=== PATIENT | female | born 1990 | race Caucasian/White ===

== ENCOUNTER 2018-04-16 02:53 | Observation (INO) | payer BC ==
--- NOTE | 2018-04-16 02:58 | EDM.PDOC ---
ED HPI GENERAL MEDICAL PROBLEM - General Stated Complaint: KIDNEY PAIN Time Seen by Provider: 04/16/18 02:58 Source of Information: Reports: Patient History Limitations: Reports: No Limitations - History of Present Illness INITIAL COMMENTS - FREE TEXT/NARRATIVE: HISTORY AND PHYSICAL: History of present illness: 27-year-old female presenting to emergency department with chief complaint of dysuria and flank pain 2 days Patient states that last evening she began to have fever, chills, shaking, and flank pain. States that she went to the urgent care yesterday at [facility] and they checked her urine and told her that she had a urinary tract infection. They gave her a prescription for Macrobid. Tonight she continued to have fever, chills and shakes, in addition worsening flank pain left greater than right. Denies any history of kidney stones. States that she did have some microscopic blood in her urine when they analyze it. Denies any cinthya blood. Denies any diarrhea, significant abdominal pain, chest pain, palpitations, syncopal episodes, or focal neurologic deficits. Patient is generally healthy and takes no regular medications other than vitamins. Currently working with Dr. Zamorano at [facility] on fertility issues. Has not started taking Clomid. On exam patient has mild right upper quadrant pain as well as right CVA and severe left CVA pain. CBC showed leukocytosis of 19,000, lactate normal. Patient started on Cipro 400 mg IV CMP revealed hypokalemia with a potassium of 3.[address] abdomen and pelvis showed findings of acute pyelitis and pyelonephritis on the left without definable renal abscess. There are no urinary stones. There is additional inadvertent finding of a moderate large 5.2 cm cystic lesion in the right ovary which was considered larger than typically seen in a physiologic cyst but secondary to patient age most likely physiologic. They did recommend ultrasound to ensure resolution. There was a small amount of free fluid in the right pelvis related to this cyst. Review of systems: As per history of present illness and below otherwise all systems reviewed and negative. Past medical history: As per history of present illness and as reviewed below otherwise noncontributory. Surgical history: As per history of present illness and as reviewed below otherwise noncontributory. Social history: No reported history of drug or alcohol abuse. Family history: As per history of present illness and as reviewed below otherwise noncontributory. Physical exam: HEENT: Atraumatic, normocephalic, pupils reactive, negative for conjunctival pallor or scleral icterus, mucous membranes moist, throat clear, neck supple, nontender, trachea midline. Lungs: Clear to auscultation, breath sounds equal bilaterally, chest nontender. Heart: S1S2, regular, negative for clicks, rubs, or JVD. Abdomen: Soft, nondistended, mild right upper quadrant tenderness. Negative for masses or hepatosplenomegaly. Bilateral CVA tenderness. Pelvis: Stable nontender. Genitourinary: Deferred. Rectal: Deferred. Extremities: Atraumatic, negative for cords or calf pain. Neurovascular unremarkable. Neuro: Awake, alert, oriented. Cranial nerves II through XII unremarkable. Cerebellum unremarkable. Motor and sensory unremarkable throughout. Exam nonfocal. Diagnostics: CBC, CMP, UA/UC, blood culture 2, lactate, CT abdomen and pelvis Therapeutics: 1 L normal saline 1, 8 mg Zofran IV 1, 1 mg Dilaudid IV 1, Impression: Rigors Bilateral flank pain Acute pyelonephritis Sepsis Plan: Secondary to patient's pain as well as her septic picture secondary to her acute pyelonephritis I did call hospitalist, Dr. Sales, who agreed for admission. He also recommended Rocephin in addition to already given Cipro. 1 g Rocephin given in the emergency room. Definitive disposition and diagnosis as appropriate pending reevaluation and review of above. flank Pain Score (Numeric/FACES): 9 - Related Data Allergies Allergy/AdvReac Type Severity Reaction Status Date / Time No Known Allergies Allergy Verified 03/24/18 11:34 Home Meds: Home Meds Nitrofurantoin Monohyd/M-Cryst [Macrobid 100 mg Capsule] 1 tab PO BID 04/16/18 [ History] ED ROS GENERAL - Review of Systems Review Of Systems: ROS reveals no pertinent complaints other than HPI. ED EXAM, GENERAL - Physical Exam Exam: See Below Course - Vital Signs Last Recorded V/S: Last Vital Signs Temp 99.2 F 04/16/18 06:39 Pulse 98 04/16/18 06:39 Resp 18 04/16/18 06:39 BP 113/73 04/16/18 06:39 Pulse Ox 99 04/16/18 06:39 - Orders/Labs/Meds Orders: Active Orders 24 hr Category Date Time Status Admission Status [Patient Status] [ADT] Stat ADT 04/16/18 06:42 Ordered Abdomen Pelvis w Cont [CT] Stat Exams 04/16/18 03:11 Ordered CULTURE BLOOD [BC] Stat Lab 04/16/18 03:22 Received CULTURE BLOOD [BC] Stat Lab 04/16/18 03:31 Received CULTURE URINE [RM] Stat Lab 04/16/18 03:10 Ordered Ciprofloxacin in D5W [Cipro in D5W 400 MG/200 ML] 400 Med 04/16/18 04:15 Active mg Premix Bag 1 bag IV Q12H Sodium Chloride 0.9% [Saline Flush] Med 04/16/18 03:11 Active 10 ml FLUSH ASDIRECTED PRN Sodium Chloride 0.9% [Saline Flush] Med 04/16/18 03:11 Active 2.5 ml FLUSH ASDIRECTED PRN Sodium Chloride 0.9% [Saline Flush] Med 04/16/18 03:11 Active 2.5 ml FLUSH ASDIRECTED PRN cefTRIAXone [Rocephin in Dextrose,Iso-Osm 1 GM/50 ML] 1 Med 04/16/18 06:39 Active gm Premix Bag 1 bag IV ONETIME Blood Culture x2 Reflex Set [OM.PC] Stat Oth 04/16/18 03:13 Ordered Saline Lock Insert [OM.PC] Stat Oth 04/16/18 03:11 Ordered Medication Orders Ciprofloxacin/Dextrose 400 mg/ (Premix) 200 mls @ 200 mls/hr IV Q12H JOSIAH Last Admin: 04/16/18 06:31 Dose: 200 mls/hr Ceftriaxone Sodium/Dextrose 1 (gm/ Premix) 50 mls @ 100 mls/hr IV ONETIME ONE Stop: 04/16/18 07:08 Sodium Chloride (Saline Flush) 2.5 ml FLUSH ASDIRECTED PRN PRN Reason: Keep Vein Open Sodium Chloride (Saline Flush) 10 ml FLUSH ASDIRECTED PRN PRN Reason: Keep Vein Open Sodium Chloride (Saline Flush) 2.5 ml FLUSH ASDIRECTED PRN PRN Reason: Keep Vein Open Labs: Laboratory Tests 04/16/18 04/16/18 04/16/18 Range/Units 03:10 03:10 03:10 WBC 19.01 H (4.0-11.0) K/uL RBC 4.71 (4.30-5.90) M/uL Hgb 14.4 (12.0-16.0) g/dL Hct 41.4 (36.0-46.0) % MCV 87.9 (80.0-98.0) fL MCH 30.6 (27.0-32.0) pg MCHC 34.8 (31.0-37.0) g/dL RDW Std Deviation 39.0 (28.0-62.0) fl RDW Coeff of Brennon 12 (11.0-15.0) % Plt Count 218 (150-400) K/uL MPV 10.90 (7.40-12.00) fL Neut % (Auto) 87.0 H (48.0-80.0) % Lymph % (Auto) 3.2 L (16.0-40.0) % [place] % (Auto) 9.5 (0.0-15.0) % Eos % (Auto) 0.1 (0.0-7.0) % Baso % (Auto) 0.2 (0.0-1.5) % Neut # (Auto) 16.5 H (1.4-5.7) K/uL Lymph # (Auto) 0.6 (0.6-2.4) K/uL [place] # (Auto) 1.8 H (0.0-0.8) K/uL Eos # (Auto) 0.0 (0.0-0.7) K/uL Baso # (Auto) 0.0 (0.0-0.1) K/uL Nucleated RBC % 0.0 /100WBC Nucleated RBCs # 0 K/uL Lactate (0.20-2.00) mmol/L Sodium (136-145) mmol/L Potassium (3.5-5.1) mmol/L Chloride (98-107) mmol/L Carbon Dioxide (21.0-32.0) mmol/L BUN (7.0-18.0) mg/dL Creatinine (0.6-1.0) mg/dL Est Cr Clr Drug Dosing mL/min Estimated GFR (MDRD) ml/min Glucose (74-106) mg/dL Calcium (8.5-10.1) mg/dL Total Bilirubin (0.2-1.0) mg/dL AST (15-37) IU/L ALT (14-63) IU/L Alkaline Phosphatase (46-116) U/L Total Protein (6.4-8.2) g/dL Albumin (3.4-5.0) g/dL Globulin (2.0-3.5) g/dL Albumin/Globulin Ratio (1.3-2.8) Urine Color YELLOW Urine Appearance CLEAR Urine pH 5.0 (5.0-8.0) Ur Specific [place] 1.020 (1.001-1.035) Urine Protein NEGATIVE (NEGATIVE) mg/dL Urine Glucose (UA) NEGATIVE (NEGATIVE) mg/dL Urine Ketones TRACE H (NEGATIVE) mg/dL Urine Occult Blood SMALL H (NEGATIVE) Urine Nitrite NEGATIVE (NEGATIVE) Urine Bilirubin NEGATIVE (NEGATIVE) Urine Urobilinogen 0.2 (<2.0) EU/dL Ur Leukocyte Esterase NEGATIVE (NEGATIVE) Urine RBC 0-3 (0-2/HPF) Urine WBC 1-4 (0-5/HPF) Ur Epithelial Cells MODERATE (NONE-FEW) Urine Bacteria RARE (NEGATIVE) Urine HCG, Qual NEGATIVE (NEGATIVE) 04/16/18 04/16/18 Range/Units 03:10 03:31 WBC (4.0-11.0) K/uL RBC (4.30-5.90) M/uL Hgb (12.0-16.0) g/dL Hct (36.0-46.0) % MCV (80.0-98.0) fL MCH (27.0-32.0) pg MCHC (31.0-37.0) g/dL RDW Std Deviation (28.0-62.0) fl RDW Coeff of Brennon (11.0-15.0) % Plt Count (150-400) K/uL MPV (7.40-12.00) fL Neut % (Auto) (48.0-80.0) % Lymph % (Auto) (16.0-40.0) % [place] % (Auto) (0.0-15.0) % Eos % (Auto) (0.0-7.0) % Baso % (Auto) (0.0-1.5) % Neut # (Auto) (1.4-5.7) K/uL Lymph # (Auto) (0.6-2.4) K/uL [place] # (Auto) (0.0-0.8) K/uL Eos # (Auto) (0.0-0.7) K/uL Baso # (Auto) (0.0-0.1) K/uL Nucleated RBC % /100WBC Nucleated RBCs # K/uL Lactate 1.9 (0.20-2.00) mmol/L Sodium 136 (136-145) mmol/L Potassium 3.3 L (3.5-5.1) mmol/L Chloride 102 (98-107) mmol/L Carbon Dioxide 23.6 (21.0-32.0) mmol/L BUN 9 (7.0-18.0) mg/dL Creatinine 0.8 (0.6-1.0) mg/dL Est Cr Clr Drug Dosing 109.41 mL/min Estimated GFR (MDRD) > 60.0 ml/min Glucose 156 H (74-106) mg/dL Calcium 9.1 (8.5-10.1) mg/dL Total Bilirubin 0.5 (0.2-1.0) mg/dL AST 12 L (15-37) IU/L ALT 17 (14-63) IU/L Alkaline Phosphatase 72 (46-116) U/L Total Protein 7.1 (6.4-8.2) g/dL Albumin 3.8 (3.4-5.0) g/dL Globulin 3.3 (2.0-3.5) g/dL Albumin/Globulin Ratio 1.2 L (1.3-2.8) Urine Color Urine Appearance Urine pH (5.0-8.0) Ur Specific [place] (1.001-1.035) Urine Protein (NEGATIVE) mg/dL Urine Glucose (UA) (NEGATIVE) mg/dL Urine Ketones (NEGATIVE) mg/dL Urine Occult Blood (NEGATIVE) Urine Nitrite (NEGATIVE) Urine Bilirubin (NEGATIVE) Urine Urobilinogen (<2.0) EU/dL Ur Leukocyte Esterase (NEGATIVE) Urine RBC (0-2/HPF) Urine WBC (0-5/HPF) Ur Epithelial Cells (NONE-FEW) Urine Bacteria (NEGATIVE) Urine HCG, Qual (NEGATIVE) Meds: Medications Generic Name Dose Route Start Last Admin Trade Name Freq PRN Reason Stop Dose Admin Ciprofloxacin/Dextrose 400 mg/ 200 mls @ 200 mls/hr 04/16/18 04:15 04/16/18 06:31 Premix IV 200 mls/hr Q12H JOSIAH Administration Ceftriaxone Sodium/Dextrose 1 50 mls @ 100 mls/hr 04/16/18 06:39 gm/ Premix IV 04/16/18 07:08 ONETIME ONE Sodium Chloride 2.5 ml 04/16/18 03:11 Saline Flush FLUSH ASDIRECTED PRN Keep Vein Open Sodium Chloride 10 ml 04/16/18 03:11 Saline Flush FLUSH ASDIRECTED PRN Keep Vein Open Sodium Chloride 2.5 ml 04/16/18 03:11 Saline Flush FLUSH ASDIRECTED PRN Keep Vein Open Discontinued Medications Generic Name Dose Route Start Last Admin Trade Name Freq PRN Reason Stop Dose Admin Hydromorphone HCl 1 mg 04/16/18 03:11 04/16/18 03:25 Dilaudid IVPUSH 04/16/18 03:12 1 mg ONETIME ONE Administration Hydromorphone HCl Confirm 04/16/18 03:12 04/16/18 06:34 Dilaudid Administered 04/16/18 03:13 Not Given Dose 1 mg .ROUTE .STK-MED ONE Hydromorphone HCl Confirm 04/16/18 05:07 04/16/18 06:35 Dilaudid Administered 04/16/18 05:08 Not Given Dose 1 mg .ROUTE .STK-MED ONE Hydromorphone HCl 1 mg 04/16/18 06:32 04/16/18 06:34 Dilaudid IVPUSH 04/16/18 06:33 1 mg ONETIME ONE Administration Sodium Chloride 1,000 mls @ 999 mls/hr 04/16/18 03:11 04/16/18 03:22 Normal Saline IV 04/16/18 04:11 999 mls/hr BOLUS ONE Administration Ciprofloxacin/Dextrose Confirm 04/16/18 04:24 04/16/18 06:33 Cipro In D5w 400 Mg/200 Ml Administered 04/16/18 04:25 Not Given Dose 200 mls @ as directed .ROUTE .STK-MED ONE Iopamidol 100 ml 04/16/18 05:49 Isovue Multipack-370 (76%) IVPUSH 04/16/18 05:50 ONETIME STA Ondansetron HCl 8 mg 04/16/18 03:11 04/16/18 03:23 Zofran IVPUSH 04/16/18 03:12 8 mg ONETIME ONE Administration Ondansetron HCl Confirm 04/16/18 03:13 04/16/18 06:35 Zofran Administered 04/16/18 03:14 Not Given Dose 8 mg .ROUTE .STK-MED ONE Potassium Chloride 40 meq 04/16/18 06:37 Klor-Con M20 PO 04/16/18 06:38 ONETIME ONE Departure - Departure Time of Disposition: 06:46 Disposition: Admitted As Inpatient 65 Condition: Fair Clinical Impression: Acute pyelonephritis, Left flank pain Sepsis Qualifiers: Sepsis type: sepsis due to unspecified organism Qualified Code(s): A41.9 - Sepsis, unspecified organism - Discharge Information Referrals: PCP,None [Primary Care Provider] - - My Orders Last 24 Hours: My Active Orders 04/16/18 03:10 CULTURE URINE [RM] Stat 04/16/18 03:11 Abdomen Pelvis w Cont [CT] Stat Sodium Chloride 0.9% [Saline Flush] 10 ml FLUSH ASDIRECTED PRN Sodium Chloride 0.9% [Saline Flush] 2.5 ml FLUSH ASDIRECTED PRN Sodium Chloride 0.9% [Saline Flush] 2.5 ml FLUSH ASDIRECTED PRN Saline Lock Insert [OM.PC] Stat 04/16/18 03:13 Blood Culture x2 Reflex Set [OM.PC] Stat 04/16/18 03:22 CULTURE BLOOD [BC] Stat 04/16/18 03:31 CULTURE BLOOD [BC] Stat 04/16/18 04:15 Ciprofloxacin in D5W [Cipro in D5W 400 MG/200 ML] 400 mg Premix Bag 1 bag IV Q12H 04/16/18 06:39 cefTRIAXone [Rocephin in Dextrose,Iso-Osm 1 GM/50 ML] 1 gm Premix Bag 1 bag IV ONETIME 04/16/18 06:42 Admission Status [Patient Status] [ADT] Stat - Assessment/Plan Last 24 Hours: My Active Orders 04/16/18 03:10 CULTURE URINE [RM] Stat 04/16/18 03:11 Abdomen Pelvis w Cont [CT] Stat Sodium Chloride 0.9% [Saline Flush] 10 ml FLUSH ASDIRECTED PRN Sodium Chloride 0.9% [Saline Flush] 2.5 ml FLUSH ASDIRECTED PRN Sodium Chloride 0.9% [Saline Flush] 2.5 ml FLUSH ASDIRECTED PRN Saline Lock Insert [OM.PC] Stat 04/16/18 03:13 Blood Culture x2 Reflex Set [OM.PC] Stat 04/16/18 03:22 CULTURE BLOOD [BC] Stat 04/16/18 03:31 CULTURE BLOOD [BC] Stat 04/16/18 04:15 Ciprofloxacin in D5W [Cipro in D5W 400 MG/200 ML] 400 mg Premix Bag 1 bag IV Q12H 04/16/18 06:39 cefTRIAXone [Rocephin in Dextrose,Iso-Osm 1 GM/50 ML] 1 gm Premix Bag 1 bag IV ONETIME 04/16/18 06:42 Admission Status [Patient Status] [ADT] Stat
[2018-04-16] MEDS ORDERED: Sodium Chloride 0.9% 2.5 ML Syringe FLUSH PRN ×2 (03:11)
[2018-04-16] MEDS ORDERED: Ondansetron 4 MG/2 ML SDV IVPUSH ONE (03:11)
[2018-04-16] MEDS ORDERED: Sodium Chloride 0.9% 1,000 ML IV ONE (03:11)
[2018-04-16] MEDS ORDERED: Sodium Chloride 0.9% 10 ML Syringe FLUSH PRN (03:11)
[2018-04-16] MEDS ORDERED: HYDROmorphone 2 MG/ML SDV IVPUSH ONE (03:11)
[2018-04-16] MEDS ORDERED: HYDROmorphone 1 MG/ML Syringe ONE ×2 (03:12→05:07)
[2018-04-16] MEDS ORDERED: Ondansetron 4 MG/2 ML SDV ONE (03:13)
[2018-04-16 04:05] LABS: CHLORIDE,CL 102 mmol/L (98-107); SODIUM,NA 136 mmol/L (136-145)
[2018-04-16] MEDS ORDERED: Ciprofloxacin in D5W 400 MG in Premix Bag 1 BAG IV SCH ×2 (04:15)
[2018-04-16] MEDS ORDERED: Ciprofloxacin in D5W 200 ML ONE (04:24)
[2018-04-16] MEDS ORDERED: Iopamidol 755 MG/ML 500 ML Multipack Bottle IVPUSH STA (05:49)
[2018-04-16] MEDS ORDERED: HYDROmorphone 2 MG/ML Syringe IVPUSH ONE (06:32)
[2018-04-16] MEDS ORDERED: Potassium Chloride 20 MEQ Tab.ER PO ONE (06:37)
[2018-04-16] MEDS ORDERED: cefTRIAXone 1 GM in Premix Bag 1 BAG IV ONE (06:39)
[2018-04-16] MEDS ORDERED: HYDROmorphone 1 MG/ML Syringe IVPUSH ONE (06:55)
[2018-04-16] MEDS ORDERED: Ondansetron 4 MG/2 ML SDV IVPUSH PRN (09:17)
[2018-04-16] MEDS: Acetaminophen 325 MG Tab PO PRN ×3 (09:34→23:11)
[2018-04-16] MEDS: Sodium Chloride 0.9% 1,000 ML IV SCH ×2 (09:41→19:03)
--- NOTE | 2018-04-16 10:01 | PCM.HP ---
H&P History of Present Illness - General Date of Service: 04/16/18 Admit Problem/Dx: Admission Diagnosis/Problem Admission Diagnosis/Problem Pyelonephritis Source of Information: Patient History Limitations: Reports: No Limitations - History of Present Illness Initial Comments - Free Text/Narative: 27F with no past medical history that presented to the ER with a chief complaint of flank pain, subjective fever x2 days. She says that she went to [facility] on 04/15/2018 AM when she was diagnosed with a UTI and started on macrobid. She says she took two pills of the macrobid, went to work but the pain that she was in was unbearable so she presented to the ER. In the ER, patient had a CT abdo/pelvis revealing acute pyelonephritis with no stone, + likely physiological ovarian cyst. She has a lack of an appetite but doesn't feel nauseous and hasn't vomited. ER Course: CBC - WBC 19k CMP - K+ 3.3 UA - not a clear UTI but had taken Macrobid prior to this UA. Will obtain UA/ Culture results from [facility] if available. flank Pain Score (Numeric/FACES): 5 - Related Data Allergies/Adverse Reactions: Allergies Allergy/AdvReac Type Severity Reaction Status Date / Time No Known Allergies Allergy Verified 03/24/18 11:34 Home Medications: Home Meds Nitrofurantoin Monohyd/M-Cryst [Macrobid 100 mg Capsule] 1 tab PO BID 04/16/18 [ History] Past Medical History - Past Health History Medical/Surgical History: Denies Medical/Surgical History - Infectious Disease History Infectious Disease History: Reports: Chicken Pox Social & Family History - Family History Family Medical History: Noncontributory - Tobacco Use Smoking Status *Q: Light Tobacco Smoker Years of Tobacco use: 10 Packs/Tins Daily: 0 Second Hand Smoke Exposure: No - Caffeine Use Caffeine Use: Reports: Tea Other Caffeine Use: 1x a week. - Recreational Drug Use Recreational Drug Use: No H&P Review of Systems - Review of Systems: Review Of Systems: See Below General: Reports: Fever, Chills, Diaphoresis HEENT: Reports: No Symptoms Pulmonary: Reports: No Symptoms Cardiovascular: Reports: No Symptoms Gastrointestinal: Reports: Decreased Appetite. Denies: Vomiting Genitourinary: Reports: Pain, Other. Denies: Burning, Urgency, Incontinence, Hematuria, Discharge Musculoskeletal: Reports: Back Pain Skin: Reports: No Symptoms Psychiatric: Reports: No Symptoms Neurological: Reports: No Symptoms Hematologic/Lymphatic: Reports: No Symptoms Immunologic: Reports: No Symptoms Exam - Exam Exam: See Below - Vital Signs Vital Signs: Last Vital Signs Temp 40.0 C H 04/16/18 09:15 Pulse 131 H 04/16/18 08:21 Resp 18 04/16/18 08:21 BP 153/94 H 04/16/18 08:21 Pulse Ox 97 04/16/18 08:21 Weight: 75.977 kg - Exam General: Alert, Oriented, Cooperative HEENT: Conjunctiva Clear, EACs Clear, EOMI, Hearing Intact, Mucosa Moist & [place] , Nares Patent, Normal Nasal Septum, Posterior Pharynx Clear, TMs Clear Neck: Supple, Trachea Midline, 2 Lungs: Clear to Auscultation, Normal Respiratory Effort Cardiovascular: Regular Rate, Regular Rhythm GI/Abdominal Exam: Normal Bowel Sounds, Soft, Non-Tender, No Organomegaly, No Distention, No Abnormal Bruit, No Mass, Pelvis Stable Back Exam: CVA Tenderness (L). No: CVA Tenderness (R) Extremities: Normal Inspection, Normal Range of Motion, Non-Tender, No Pedal Edema, Normal Capillary Refill Peripheral Pulses: 2+: Posterior Tibial (L), Posterior Tibial (R), Dorsalis Pedis (L), Dorsalis Pedis (R) Skin: Warm, Dry, Intact Neurological: Cranial Nerves Intact Neuro Extensive - Mental Status: Alert, Oriented x3, Normal Mood/Affect - Patient Data Lab Results Last 24 hrs: Laboratory Results - last 24 hr 04/16/18 04/16/18 04/16/18 Range/Units 03:10 03:10 03:10 WBC 19.01 H (4.0-11.0) K/uL RBC 4.71 (4.30-5.90) M/uL Hgb 14.4 (12.0-16.0) g/dL Hct 41.4 (36.0-46.0) % MCV 87.9 (80.0-98.0) fL MCH 30.6 (27.0-32.0) pg MCHC 34.8 (31.0-37.0) g/dL RDW Std Deviation 39.0 (28.0-62.0) fl RDW Coeff of Brennon 12 (11.0-15.0) % Plt Count 218 (150-400) K/uL MPV 10.90 (7.40-12.00) fL Neut % (Auto) 87.0 H (48.0-80.0) % Lymph % (Auto) 3.2 L (16.0-40.0) % [place] % (Auto) 9.5 (0.0-15.0) % Eos % (Auto) 0.1 (0.0-7.0) % Baso % (Auto) 0.2 (0.0-1.5) % Neut # (Auto) 16.5 H (1.4-5.7) K/uL Lymph # (Auto) 0.6 (0.6-2.4) K/uL [place] # (Auto) 1.8 H (0.0-0.8) K/uL Eos # (Auto) 0.0 (0.0-0.7) K/uL Baso # (Auto) 0.0 (0.0-0.1) K/uL Nucleated RBC % 0.0 /100WBC Nucleated RBCs # 0 K/uL Lactate (0.20-2.00) mmol/L Sodium (136-145) mmol/L Potassium (3.5-5.1) mmol/L Chloride (98-107) mmol/L Carbon Dioxide (21.0-32.0) mmol/L BUN (7.0-18.0) mg/dL Creatinine (0.6-1.0) mg/dL Est Cr Clr Drug Dosing mL/min Estimated GFR (MDRD) ml/min Glucose (74-106) mg/dL Calcium (8.5-10.1) mg/dL Total Bilirubin (0.2-1.0) mg/dL AST (15-37) IU/L ALT (14-63) IU/L Alkaline Phosphatase (46-116) U/L Total Protein (6.4-8.2) g/dL Albumin (3.4-5.0) g/dL Globulin (2.0-3.5) g/dL Albumin/Globulin Ratio (1.3-2.8) Urine Color YELLOW Urine Appearance CLEAR Urine pH 5.0 (5.0-8.0) Ur Specific [place] 1.020 (1.001-1.035) Urine Protein NEGATIVE (NEGATIVE) mg/dL Urine Glucose (UA) NEGATIVE (NEGATIVE) mg/dL Urine Ketones TRACE H (NEGATIVE) mg/dL Urine Occult Blood SMALL H (NEGATIVE) Urine Nitrite NEGATIVE (NEGATIVE) Urine Bilirubin NEGATIVE (NEGATIVE) Urine Urobilinogen 0.2 (<2.0) EU/dL Ur Leukocyte Esterase NEGATIVE (NEGATIVE) Urine RBC 0-3 (0-2/HPF) Urine WBC 1-4 (0-5/HPF) Ur Epithelial Cells MODERATE (NONE-FEW) Urine Bacteria RARE (NEGATIVE) Urine HCG, Qual NEGATIVE (NEGATIVE) 04/16/18 04/16/18 Range/Units 03:10 03:31 WBC (4.0-11.0) K/uL RBC (4.30-5.90) M/uL Hgb (12.0-16.0) g/dL Hct (36.0-46.0) % MCV (80.0-98.0) fL MCH (27.0-32.0) pg MCHC (31.0-37.0) g/dL RDW Std Deviation (28.0-62.0) fl RDW Coeff of Brennon (11.0-15.0) % Plt Count (150-400) K/uL MPV (7.40-12.00) fL Neut % (Auto) (48.0-80.0) % Lymph % (Auto) (16.0-40.0) % [place] % (Auto) (0.0-15.0) % Eos % (Auto) (0.0-7.0) % Baso % (Auto) (0.0-1.5) % Neut # (Auto) (1.4-5.7) K/uL Lymph # (Auto) (0.6-2.4) K/uL [place] # (Auto) (0.0-0.8) K/uL Eos # (Auto) (0.0-0.7) K/uL Baso # (Auto) (0.0-0.1) K/uL Nucleated RBC % /100WBC Nucleated RBCs # K/uL Lactate 1.9 (0.20-2.00) mmol/L Sodium 136 (136-145) mmol/L Potassium 3.3 L (3.5-5.1) mmol/L Chloride 102 (98-107) mmol/L Carbon Dioxide 23.6 (21.0-32.0) mmol/L BUN 9 (7.0-18.0) mg/dL Creatinine 0.8 (0.6-1.0) mg/dL Est Cr Clr Drug Dosing 109.41 mL/min Estimated GFR (MDRD) > 60.0 ml/min Glucose 156 H (74-106) mg/dL Calcium 9.1 (8.5-10.1) mg/dL Total Bilirubin 0.5 (0.2-1.0) mg/dL AST 12 L (15-37) IU/L ALT 17 (14-63) IU/L Alkaline Phosphatase 72 (46-116) U/L Total Protein 7.1 (6.4-8.2) g/dL Albumin 3.8 (3.4-5.0) g/dL Globulin 3.3 (2.0-3.5) g/dL Albumin/Globulin Ratio 1.2 L (1.3-2.8) Urine Color Urine Appearance Urine pH (5.0-8.0) Ur Specific [place] (1.001-1.035) Urine Protein (NEGATIVE) mg/dL Urine Glucose (UA) (NEGATIVE) mg/dL Urine Ketones (NEGATIVE) mg/dL Urine Occult Blood (NEGATIVE) Urine Nitrite (NEGATIVE) Urine Bilirubin (NEGATIVE) Urine Urobilinogen (<2.0) EU/dL Ur Leukocyte Esterase (NEGATIVE) Urine RBC (0-2/HPF) Urine WBC (0-5/HPF) Ur Epithelial Cells (NONE-FEW) Urine Bacteria (NEGATIVE) Urine HCG, Qual (NEGATIVE) Result Diagrams: 04/16/18 03:10 04/16/18 03:10 Problem List Initiated/Reviewed/Updated: Yes Orders Last 24hrs: Active Orders 24 hr Category Date Time Status Admission Status [Patient Status] [ADT] Stat ADT 04/16/18 06:42 Active Oxygen Therapy [RC] PRN Care 04/16/18 09:15 Active Up ad Cindi [RC] ASDIRECTED Care 04/16/18 09:15 Active VTE/DVT Education [RC] PER UNIT ROUTINE Care 04/16/18 09:15 Active Vital Signs [RC] Q4H Care 04/16/18 09:15 Active Regular Diet [DIET] Diet 04/16/18 Lunch Active Abdomen Pelvis w Cont [CT] Stat Exams 04/16/18 03:11 Taken BASIC METABOLIC PANEL,BMP [CHEM] AM Lab 04/17/18 05:11 Ordered CBC W/O DIFF,HEMOGRAM [HEME] AM Lab 04/17/18 05:11 Ordered CULTURE BLOOD [BC] Stat Lab 04/16/18 03:22 Received CULTURE BLOOD [BC] Stat Lab 04/16/18 03:31 Received CULTURE URINE [RM] Stat Lab 04/16/18 03:10 Received Acetaminophen [Tylenol] Med 04/16/18 09:15 Active 650 mg PO Q4H PRN Ciprofloxacin in D5W [Cipro in D5W 400 MG/200 ML] 400 Med 04/16/18 04:15 Active mg Premix Bag 1 bag IV Q12H Morphine Med 04/16/18 09:36 Ordered 2 mg IVPUSH Q2H PRN Ondansetron [Zofran] Med 04/16/18 09:17 Active 4 mg IVPUSH Q4H PRN Sodium Chloride 0.9% [Normal Saline] 1,000 ml Med 04/16/18 09:15 Active IV ASDIRECTED Sodium Chloride 0.9% [Saline Flush] Med 04/16/18 03:11 Active 10 ml FLUSH ASDIRECTED PRN Sodium Chloride 0.9% [Saline Flush] Med 04/16/18 03:11 Active 2.5 ml FLUSH ASDIRECTED PRN Sodium Chloride 0.9% [Saline Flush] Med 04/16/18 03:11 Active 2.5 ml FLUSH ASDIRECTED PRN cefTRIAXone [Rocephin in Dextrose,Iso-Osm 1 GM/50 ML] 1 Med 04/16/18 09:45 Ordered gm Premix Bag 1 bag IV Q24H Blood Culture x2 Reflex Set [OM.PC] Stat Oth 04/16/18 03:13 Ordered Saline Lock Insert [OM.PC] Stat Oth 04/16/18 03:11 Ordered Sequential Compression Device [OM.PC] Per Unit Routine Oth 04/16/18 09:15 Ordered Resuscitation Status Routine Resus Stat 04/16/18 09:15 Ordered Medication Orders Acetaminophen (Tylenol) 650 mg PO Q4H PRN PRN Reason: Pain (Mild 1-3)/fever Last Admin: 04/16/18 09:34 Dose: 650 mg Ciprofloxacin/Dextrose 400 mg/ (Premix) 200 mls @ 200 mls/hr IV Q12H [facility] Last Admin: 04/16/18 06:31 Dose: 200 mls/hr Sodium Chloride (Normal Saline) 1,000 mls @ 150 mls/hr IV ASDIRECTED JOSIAH Last Admin: 04/16/18 09:41 Dose: 150 mls/hr Ceftriaxone Sodium/Dextrose 1 (gm/ Premix) 50 mls @ 100 mls/hr IV Q24H [facility] Morphine Sulfate (Morphine) 2 mg IVPUSH Q2H PRN PRN Reason: Pain Ondansetron HCl (Zofran) 4 mg IVPUSH Q4H PRN PRN Reason: Nausea Sodium Chloride (Saline Flush) 2.5 ml FLUSH ASDIRECTED PRN PRN Reason: Keep Vein Open Sodium Chloride (Saline Flush) 10 ml FLUSH ASDIRECTED PRN PRN Reason: Keep Vein Open Sodium Chloride (Saline Flush) 2.5 ml FLUSH ASDIRECTED PRN PRN Reason: Keep Vein Open Assessment/Plan Comment:: Assessment: #1. Acute Pyelonephritis #2. Leukocytosis secondary to #1 #3. Pain secondary to #1 #4. Nausea secondary to #1 #5. Physiologic Ovarian cyst #6. Fever Plan: #1. Admit to the floor for observation. Vital signs per floor routine. SCD for DVT prophylaxis. Up ad cindi. Regular diet. #2. IV Rocephin 1g q24h #3. Morphine 2mg q2h PRN, pain #4. Zofran 4mg q4h PRN, nausea #5. F/u on Urine culture. Obtain records from [facility] and see if the culture they might have obtained is back yet. Also want to see the UA from there. #6. CT also showed an incidental ovarian cyst thats likely physiologic. I'd like to obtain a f/u as an outpatient that we can schedule upon discharge. #7. Anticipate DC 1-2 days pending clinical improvement.
[2018-04-16] MEDS: cefTRIAXone 1 GM in Sodium Chloride 0.9% 50 ML IV SCH (10:45)
[2018-04-16] MEDS: Morphine 2 MG/ML Syringe IVPUSH PRN ×4 (10:46→20:44)
--- NOTE | 2018-04-16 13:15 | CT ---
EXAM DATE: 04/16/18 PATIENT'S AGE: 27 Patient: BILL GOLDSTEIN Facility: [place], [place] Site . Site : 1990 Study: CT Abdomen/Pelvis [id number]/4/2018 5:57:10 AM Ordering Physician: Henrique Herrera Final Report: INDICATION: Flank pain. Previous urinary tract infections. TECHNIQUE: CT of the abdomen and pelvis performed after 100 mL Isovue-370 injected intravenously. FINDINGS: Moderate phlegmonous inflammatory stranding and fluid surrounding the left kidney with wall thickening and abnormal enhancement of the left ureter especially proximally extending into the left renal pelvis. Patchy areas of ill- defined and wedge-shaped decreased density and enhancement in the left kidney. Findings all typical of acute ascending urinary tract infection with acute pyelitis and pyelonephritis. Right kidney is normal. Slight prominence of the right renal pelvis. No definable left renal abscess at this time. Moderate- sized right ovarian cystic lesion oval in shape and measures 5.2 cm. Small amount of fluid surrounding the right ovary. Appendix is normal. Small cysts and follicles in the left ovary. Remainder negative. IMPRESSION: 1. Typical CT findings of acute pyelitis and pyelonephritis on the left without definable renal abscess at this time. 2. No obvious urinary stones. 3. Moderate sized moderately large size 5.2 cm cystic lesion right ovary is larger than typically seen for a physiologic cyst but in a patient of this age is still likely physiologic. Follow-up ultrasound could ensure this resolves. Small amount of free fluid in the right pelvis related to this stone. Other findings as above. Please note that all CT scans at this facility use dose modulation, iterative reconstruction, and/or weight-based dosing when appropriate to reduce radiation dose to as low as reasonably achievable. Dictated by Dominguez Craven MD @ Apr 16 2018 6:23AM (Electronic Signature) Report Signed by Proxy. ANSLEY
[2018-04-16] MEDS: HYDROmorphone 1 MG/ML Syringe IVPUSH PRN ×2 (19:02→23:08)
[2018-04-17] MEDS: Sodium Chloride 0.9% 1,000 ML IV SCH ×2 (01:25→08:00)
[2018-04-17] MEDS: Morphine 2 MG/ML Syringe IVPUSH PRN (03:34)
[2018-04-17] MEDS: Acetaminophen 325 MG Tab PO PRN ×2 (03:34→07:54)
[2018-04-17 05:44] LABS: CHLORIDE,CL 109 mmol/L (98-107); SODIUM,NA 139 mmol/L (136-145)
[2018-04-17] MEDS: HYDROmorphone 1 MG/ML Syringe IVPUSH PRN (07:55)
[2018-04-17] MEDS: cefTRIAXone 1 GM in Sodium Chloride 0.9% 50 ML IV SCH (09:07)
--- NOTE | 2018-04-17 15:33 | PCM.DCSUM1 ---
<Nagi Mtz - Last Filed: 04/17/18 15:29> Discharge Summary - Hospital Course Free Text/Narrative:: admission date: 04/16/2018 discharge date: 04/17/2018 admission dx: #1. Acute pyelonephritis #2. Leukocytosis #3. Fever #4. CVA tenderness and pain secondary to #1 #5. Nausea discharge dx: #1. Acute pyelonephritis - clinically improved #2. Leukocytosis - improving #3. Fever - afebrile overnight #4. CVA tenderness and pain secondary to #1 - improved #5. Nausea - resolved Hospital course: 27F with no significant past hx that presented to the ER with a cc of bilateral flank pain found on CT to have acute pyelonephritis w/ no obstructing stone was admitted secondary to pain control and nausea. She was placed on IV rocephin, PRN pain control which she responded well to. The next morning on assessment, patient was afebrile, pain stable, able to tolerate PO. She wanted to go home. I put her on augmentin for the next 13 day. Culture wasn' t obtained at urgent care center that she went to originally so was unable to obtain now given that she was on abx. She was placed on macrobid by urgent care. She is to f/u with me in clinic. She is to report worsening or persistent worrisome symptoms. A release to work was given so she can go back to work on Friday04/20/18. She understood and agreed to the plan. - Discharge Data Discharge Date: 04/17/18 Discharge Disposition: Home, Self-Care 01 Condition: Stable - Patient Instructions Diet: Usual Diet as Tolerated Activity: As Tolerated Driving: May Drive Today Showering/Bathing: May Shower Notify Provider of: Fever, Increased Pain, Swelling and Redness, Nausea and/or Vomiting - Discharge Plan Prescriptions/Med Rec: Amoxicillin/Clavulanate K [Augmentin 875-125 MG] 1 tab PO Q12H 13 Days #26 tablet traMADol [Ultram] 50 mg PO Q8H PRN #15 tablet PRN Reason: Pain Home Medications: Home Meds Nitrofurantoin Monohyd/M-Cryst [Macrobid 100 mg Capsule] 1 tab PO BID 04/16/18 [ History] Amoxicillin/Clavulanate K [Augmentin 875-125 MG] 1 tab PO Q12H 13 Days #26 tablet 04/17/18 [Rx] traMADol [Ultram] 50 mg PO Q8H PRN #15 tablet 04/17/18 [Rx] Patient Handouts: Fever, Adult, Pyelonephritis, Adult, [id number] Referrals: Nagi Mtz MD [Resident] - 04/30/18 2:30 pm - Patient Data Vitals - Most Recent: Last Vital Signs Temp 36.9 C 04/17/18 11:24 Pulse 80 04/17/18 11:24 Resp 16 04/17/18 11:24 BP 108/70 04/17/18 11:24 Pulse Ox 99 04/17/18 11:24 Weight - Most Recent: 75.977 kg I&O - Last 24 hours: Intake & Output 04/17/18 04/17/18 04/17/18 06:59 14:59 22:59 Intake Total 2373 Output Total 650 Balance 1723 Lab Results - Last 24 hrs: Laboratory Results - last 24 hr 04/17/18 04/17/18 Range/Units 04:55 04:55 WBC 13.43 H (4.0-11.0) K/uL RBC 3.85 L (4.30-5.90) M/uL Hgb 11.6 L (12.0-16.0) g/dL Hct 35.0 L (36.0-46.0) % MCV 90.9 (80.0-98.0) fL MCH 30.1 (27.0-32.0) pg MCHC 33.1 (31.0-37.0) g/dL RDW Std Deviation 42.1 (28.0-62.0) fl RDW Coeff of Brennon 13 (11.0-15.0) % Plt Count 141 L (150-400) K/uL MPV 10.90 (7.40-12.00) fL Nucleated RBC % 0.0 /100WBC Nucleated RBCs # 0 K/uL Sodium 139 (136-145) mmol/L Potassium 3.5 (3.5-5.1) mmol/L Chloride 109 H (98-107) mmol/L Carbon Dioxide 23.1 (21.0-32.0) mmol/L BUN 6 L (7.0-18.0) mg/dL Creatinine 0.7 (0.6-1.0) mg/dL Est Cr Clr Drug Dosing 125.04 mL/min Estimated GFR (MDRD) > 60.0 ml/min Glucose 109 H (74-106) mg/dL Calcium 7.9 L (8.5-10.1) mg/dL RAINER Results - Last 24 hrs: Microbiology 04/16/18 03:31 Aerobic Blood Culture - Preliminary Blood - Venous - Lab Draw NO GROWTH AFTER 1 DAY Anaerobic Blood Culture - Preliminary NO GROWTH AFTER 1 DAY 04/16/18 03:22 Aerobic Blood Culture - Preliminary Blood - Venous NO GROWTH AFTER 1 DAY Anaerobic Blood Culture - Preliminary NO GROWTH AFTER 1 DAY Med Orders - Current: Current Medications Discontinued Medications Acetaminophen (Tylenol) 650 mg PO Q4H PRN PRN Reason: Pain (Mild 1-3)/fever Last Admin: 04/17/18 07:54 Dose: 650 mg Hydromorphone HCl (Dilaudid) 1 mg IVPUSH ONETIME ONE Stop: 04/16/18 03:12 Last Admin: 04/16/18 03:25 Dose: 1 mg Hydromorphone HCl (Dilaudid) Confirm Administered Dose 1 mg .ROUTE .STK-MED ONE Stop: 04/16/18 03:13 Last Admin: 04/16/18 06:34 Dose: Not Given Hydromorphone HCl (Dilaudid) Confirm Administered Dose 1 mg .ROUTE .STK-MED ONE Stop: 04/16/18 05:08 Last Admin: 04/16/18 06:35 Dose: Not Given Hydromorphone HCl (Dilaudid) 1 mg IVPUSH ONETIME ONE Stop: 04/16/18 06:33 Last Admin: 04/16/18 06:34 Dose: 1 mg Hydromorphone HCl (Dilaudid) 1 mg IVPUSH ONETIME ONE Stop: 04/16/18 06:56 Last Admin: 04/16/18 07:02 Dose: 1 mg Hydromorphone HCl (Dilaudid) 0.5 mg IVPUSH Q4H PRN PRN Reason: Pain Last Admin: 04/17/18 07:55 Dose: 0.5 mg Sodium Chloride (Normal Saline) 1,000 mls @ 999 mls/hr IV BOLUS ONE Stop: 04/16/18 04:11 Last Admin: 04/16/18 03:22 Dose: 999 mls/hr Ciprofloxacin/Dextrose (Cipro In D5w 400 Mg/200 Ml) Confirm Administered Dose 200 mls @ as directed .ROUTE .STK-MED ONE Stop: 04/16/18 04:25 Last Admin: 04/16/18 06:33 Dose: Not Given Ciprofloxacin/Dextrose 400 mg/ (Premix) 200 mls @ 200 mls/hr IV Q12H [facility] Last Admin: 04/16/18 06:31 Dose: 200 mls/hr Ceftriaxone Sodium/Dextrose 1 (gm/ Premix) 50 mls @ 100 mls/hr IV ONETIME ONE Stop: 04/16/18 07:08 Last Admin: 04/16/18 06:58 Dose: 100 mls/hr Sodium Chloride (Normal Saline) 1,000 mls @ 150 mls/hr IV ASDIRECTED [facility] Last Admin: 04/17/18 08:00 Dose: 150 mls/hr Ceftriaxone Sodium 1 gm/ (Sodium Chloride) 50 mls @ 100 mls/hr IV Q24H [facility] Last Admin: 04/17/18 09:07 Dose: 100 mls/hr Iopamidol (Isovue Multipack-370 (76%)) 100 ml IVPUSH ONETIME STA Stop: 04/16/18 05:50 Last Admin: 04/16/18 10:41 Dose: Not Given Morphine Sulfate (Morphine) 2 mg IVPUSH Q2H PRN PRN Reason: Pain Last Admin: 04/17/18 03:34 Dose: 2 mg Ondansetron HCl (Zofran) 8 mg IVPUSH ONETIME ONE Stop: 04/16/18 03:12 Last Admin: 04/16/18 03:23 Dose: 8 mg Ondansetron HCl (Zofran) Confirm Administered Dose 8 mg .ROUTE .STK-MED ONE Stop: 04/16/18 03:14 Last Admin: 04/16/18 06:35 Dose: Not Given Ondansetron HCl (Zofran) 4 mg IVPUSH Q4H PRN PRN Reason: Nausea Potassium Chloride (Klor-Con M20) 40 meq PO ONETIME ONE Stop: 04/16/18 06:38 Last Admin: 04/16/18 06:57 Dose: 40 meq Sodium Chloride (Saline Flush) 2.5 ml FLUSH ASDIRECTED PRN PRN Reason: Keep Vein Open Sodium Chloride (Saline Flush) 10 ml FLUSH ASDIRECTED PRN PRN Reason: Keep Vein Open Sodium Chloride (Saline Flush) 2.5 ml FLUSH ASDIRECTED PRN PRN Reason: Keep Vein Open <Leno Sales - Last Filed: 04/21/18 14:38> Discharge Summary - Discharge Summary/Plan Comment DC Time >30 min.: No - Patient Data Vitals - Most Recent: Last Vital Signs Temp 36.9 C 04/17/18 11:24 Pulse 80 04/17/18 11:24 Resp 16 04/17/18 11:24 BP 108/70 04/17/18 11:24 Pulse Ox 99 04/17/18 11:24 RAINER Results - Last 24 hrs: Microbiology 04/16/18 03:31 Aerobic Blood Culture - Final Blood - Venous - Lab Draw NO GROWTH AFTER 5 DAYS Anaerobic Blood Culture - Final NO GROWTH AFTER 5 DAYS 04/16/18 03:22 Aerobic Blood Culture - Final Blood - Venous NO GROWTH AFTER 5 DAYS Anaerobic Blood Culture - Final NO GROWTH AFTER 5 DAYS Med Orders - Current: Current Medications Discontinued Medications Acetaminophen (Tylenol) 650 mg PO Q4H PRN PRN Reason: Pain (Mild 1-3)/fever Last Admin: 04/17/18 07:54 Dose: 650 mg Hydromorphone HCl (Dilaudid) 1 mg IVPUSH ONETIME ONE Stop: 04/16/18 03:12 Last Admin: 04/16/18 03:25 Dose: 1 mg Hydromorphone HCl (Dilaudid) Confirm Administered Dose 1 mg .ROUTE .STK-MED ONE Stop: 04/16/18 03:13 Last Admin: 04/16/18 06:34 Dose: Not Given Hydromorphone HCl (Dilaudid) Confirm Administered Dose 1 mg .ROUTE .STK-MED ONE Stop: 04/16/18 05:08 Last Admin: 04/16/18 06:35 Dose: Not Given Hydromorphone HCl (Dilaudid) 1 mg IVPUSH ONETIME ONE Stop: 04/16/18 06:33 Last Admin: 04/16/18 06:34 Dose: 1 mg Hydromorphone HCl (Dilaudid) 1 mg IVPUSH ONETIME ONE Stop: 04/16/18 06:56 Last Admin: 04/16/18 07:02 Dose: 1 mg Hydromorphone HCl (Dilaudid) 0.5 mg IVPUSH Q4H PRN PRN Reason: Pain Last Admin: 04/17/18 07:55 Dose: 0.5 mg Sodium Chloride (Normal Saline) 1,000 mls @ 999 mls/hr IV BOLUS ONE Stop: 04/16/18 04:11 Last Admin: 04/16/18 03:22 Dose: 999 mls/hr Ciprofloxacin/Dextrose (Cipro In D5w 400 Mg/200 Ml) Confirm Administered Dose 200 mls @ as directed .ROUTE .STK-MED ONE Stop: 04/16/18 04:25 Last Admin: 04/16/18 06:33 Dose: Not Given Ciprofloxacin/Dextrose 400 mg/ (Premix) 200 mls @ 200 mls/hr IV Q12H [facility] Last Admin: 04/16/18 06:31 Dose: 200 mls/hr Ceftriaxone Sodium/Dextrose 1 (gm/ Premix) 50 mls @ 100 mls/hr IV ONETIME ONE Stop: 04/16/18 07:08 Last Admin: 04/16/18 06:58 Dose: 100 mls/hr Sodium Chloride (Normal Saline) 1,000 mls @ 150 mls/hr IV ASDIRECTED [facility] Last Admin: 04/17/18 08:00 Dose: 150 mls/hr Ceftriaxone Sodium 1 gm/ (Sodium Chloride) 50 mls @ 100 mls/hr IV Q24H [facility] Last Admin: 04/17/18 09:07 Dose: 100 mls/hr Iopamidol (Isovue Multipack-370 (76%)) 100 ml IVPUSH ONETIME STA Stop: 04/16/18 05:50 Last Admin: 04/16/18 10:41 Dose: Not Given Morphine Sulfate (Morphine) 2 mg IVPUSH Q2H PRN PRN Reason: Pain Last Admin: 04/17/18 03:34 Dose: 2 mg Ondansetron HCl (Zofran) 8 mg IVPUSH ONETIME ONE Stop: 04/16/18 03:12 Last Admin: 04/16/18 03:23 Dose: 8 mg Ondansetron HCl (Zofran) Confirm Administered Dose 8 mg .ROUTE .STK-MED ONE Stop: 04/16/18 03:14 Last Admin: 04/16/18 06:35 Dose: Not Given Ondansetron HCl (Zofran) 4 mg IVPUSH Q4H PRN PRN Reason: Nausea Potassium Chloride (Klor-Con M20) 40 meq PO ONETIME ONE Stop: 04/16/18 06:38 Last Admin: 04/16/18 06:57 Dose: 40 meq Sodium Chloride (Saline Flush) 2.5 ml FLUSH ASDIRECTED PRN PRN Reason: Keep Vein Open Sodium Chloride (Saline Flush) 10 ml FLUSH ASDIRECTED PRN PRN Reason: Keep Vein Open Sodium Chloride (Saline Flush) 2.5 ml FLUSH ASDIRECTED PRN PRN Reason: Keep Vein Open - Free Text/Narrative Note: I have examined the patient. I have discussed findings and treatment plan with the resident. I agree with the assessment and plan in the following resident's note.
== END 2018-04-17 11:30 | disposition home or self-care (01) ==
LOC: MW.ED 02:53 → MW.MS 08:20
PROVIDERS: ADMIT Internal Medicine; ATTEND Internal Medicine
DX: N10 Acute pyelonephritis (principal); D72.829 Elevated white blood cell count, unspecified; A41.9 Sepsis, unspecified organism; N83.201 Unspecified ovarian cyst, right side; F17.200 Nicotine dependence, unspecified, uncomplicated; Z79.2 Long term (current) use of antibiotics
CPT/HCPCS: 36415; 74177; 80048; 80053; 81001; 81025; 83036; 83605; 85025; 85027; 87040; 87086; 96361; 96365; 96367; 96375; 96376; 99285; A9270; J0696; J0744; J1170; J2270; J2405; J7040; J7050; 96366; 99284; G0378

== ENCOUNTER 2019-06-15 12:00 | Inpatient (IN) | payer BC ==
[2019-06-15] MEDS ORDERED: Tranexamic Acid 1,000 MG in Sodium Chloride 0.9% 100 ML IV PRN ×2 (12:20→20:11)
[2019-06-15] MEDS ORDERED: Terbutaline 1 MG/ML SDV SUBCUT PRN (12:20)
[2019-06-15] MEDS ORDERED: Methylergonovine 0.2 MG/1 ML Amp IM PRN (12:20)
[2019-06-15] MEDS ORDERED: Sodium Chloride 0.9% 10 ML Syringe FLUSH PRN (12:20)
[2019-06-15] MEDS ORDERED: Ondansetron 4 MG/2 ML SDV IVPUSH PRN (12:20)
[2019-06-15] MEDS ORDERED: Carboprost Tromethamine 250 MCG/1 ML Amp IM PRN (12:20)
[2019-06-15] MEDS ORDERED: Butorphanol 1 MG/ML SDV IVPUSH PRN (12:20)
[2019-06-15] MEDS ORDERED: Sodium Chloride 0.9% 10 ML SDV IV PRN (12:20)
[2019-06-15] MEDS ORDERED: Lidocaine 1% 50 ML MDV INJECT PRN (12:20)
[2019-06-15] MEDS ORDERED: Sodium Chloride 0.9% 2.5 ML Syringe FLUSH PRN (12:20)
[2019-06-15] MEDS ORDERED: Nalbuphine 10 MG/1 ML Vial IVPUSH PRN (12:20)
[2019-06-15] MEDS ORDERED: Misoprostol 200 MCG Tab PO PRN (12:20)
[2019-06-15] MEDS ORDERED: Water For Irrigation,Sterile 1,000 ML Container IRR PRN (12:20)
[2019-06-15] MEDS ORDERED: Oxytocin/0.9 % Sodium Chloride 30 UNIT/500 ML BAG IV SCH ×2 (12:30)
[2019-06-15] MEDS: Lactated Ringers 1,000 ML IV SCH ×3 (12:38→18:27)
--- NOTE | 2019-06-15 16:14 | PCM.PREANE ---
Preanesthetic Assessment - Procedure Proposed Procedure: Labor Epidural. - Anesthesia/Transfusion/Family Hx Anesthesia History: Prior Anesthesia Without Reaction Family History of Anesthesia Reaction: No Transfusion History: No Prior Transfusion(s) Intubation History: Unknown Additional History: Healthy term . Active labor, on Pitocin, dilated 4 cm. Received Stadol @ 15:27. - Review of Systems General: No Symptoms Pulmonary: No Symptoms Cardiovascular: No Symptoms Gastrointestinal: No Symptoms Neurological: No Symptoms Other: Reports: None - Physical Assessment NPO Status Date: 06/15/19 NPO Status Time: 15:00 (Clear Liquids) Vital Signs: 117/73-72-16 98% SaO2. Height: 1.78 m Weight: 89.358 kg ASA Class: 1 Mental Status: Alert & Oriented x3 Airway Class: Mallampati = 1 Dentition: Reports: Normal Dentition Thyro-Mental Finger Breadths: 3 Mouth Opening Finger Breadths: 3 ROM/Head Extension: Full Lungs: Clear to Auscultation Cardiovascular: Regular Rate - Lab Values: Laboratory Last Values WBC 15.06 K/uL (4.0-11.0) H 06/15/19 12:45 RBC 4.25 M/uL (4.30-5.90) L 06/15/19 12:45 Hgb 13.4 g/dL (12.0-16.0) 06/15/19 12:45 Hct 38.1 % (36.0-46.0) 06/15/19 12:45 MCV 89.6 fL (80.0-98.0) 06/15/19 12:45 MCH 31.5 pg (27.0-32.0) 06/15/19 12:45 MCHC 35.2 g/dL (31.0-37.0) 06/15/19 12:45 RDW Std Deviation 38.6 fl (28.0-62.0) 06/15/19 12:45 RDW Coeff of Brennon 12 % (11.0-15.0) 06/15/19 12:45 Plt Count 173 K/uL (150-400) 06/15/19 12:45 MPV 11.90 fL (7.40-12.00) 06/15/19 12:45 Blood Type B NEGATIVE 06/15/19 12:45 Antibody Screen NEGATIVE 06/15/19 12:45 - Allergies Allergies/Adverse Reactions: Allergies Allergy/AdvReac Type Severity Reaction Status Date / Time No Known Allergies Allergy Verified 06/15/19 12:20 - Blood Blood Available: No - Anesthesia Plan Pre-Op Medication Ordered: None - Acknowledgements Anesthesia Type Planned: Epidural Pt an Appropriate Candidate for the Planned Anesthesia: Yes Alternatives and Risks of Anesthesia Discussed w Pt/Guardian: Yes Pt/Guardian Understands and Agrees with Anesthesia Plan: Yes Additional Comments: Discussed procedure. Aware of risks and benefits. ? answered. Accepts. Wishes to proceed upon OK from ASSISTED LIVING ASSISTANT. Acceptable candidate. PreAnesthesia Questionnaire - Past Health History Medical/Surgical History: Denies Medical/Surgical History Genitourinary History: Reports: Pyelonephritis, Other (See Below) Other Genitourinary History: 2018 ASSISTED LIVING ASSISTANT History: Reports: - Infectious Disease History Infectious Disease History: Reports: Chicken Pox, Influenza - Past Surgical History HEENT Surgical History: Reports: Other (See Below) Other HEENT Surgeries/Procedures: wisdom teeth removal - SUBSTANCE USE Smoking Status *Q: Former Smoker Tobacco Use Within Last Twelve Months: Cigarettes Second Hand Smoke Exposure: No - HOME MEDS Home Medications: Home Meds Docusate Sodium [Colace] 100 mg PO TID 06/15/19 [History] Iron,Carbonyl/Vit C/Vit B12/Fa [Iron 100 Plus Tablet] 1 tab PO DAILY 06/15/19 [ History] Magnesium Oxide 400 mg PO DAILY 06/15/19 [History] Pnv No.95/Ferrous Fum/Folic AC [ Vitamin Tablet] 1 tab PO DAILY [History] - CURRENT (IN HOUSE) MEDS Current Meds: Current Medications Butorphanol Tartrate (Stadol) 1 mg IVPUSH Q1H PRN PRN Reason: Pain Last Admin: 06/15/19 15:27 Dose: 1 mg Carboprost Tromethamine (Hemabate Ds) 250 mcg IM ASDIRECTED PRN PRN Reason: Post Hemorrhage Lactated Ringer's (Ringers, Lactated) 1,000 mls @ 150 mls/hr IV ASDIRECTED JOSIAH Last Admin: 06/15/19 12:38 Dose: 500 mls/hr Oxytocin/Sodium Chloride (Oxytocin 30 Unit/500 Ml-Ns) 30 unit in 500 mls @ 500 mls/hr IV TITRATE JOSIAH Oxytocin/Sodium Chloride (Oxytocin 30 Unit/500 Ml-Ns) 30 unit in 500 mls @ 2 mls/hr IV TITRATE JOSIAH; Protocol Last Titration: 06/15/19 13:14 Dose: 4 munits/min, 4 mls/hr Tranexamic Acid 1,000 mg/ (Sodium Chloride) 110 mls @ 660 mls/hr IV ONETIME PRN PRN Reason: Bleeding Lidocaine HCl (Xylocaine 1%) 50 ml INJECT ONETIME PRN PRN Reason: Laceration repair Methylergonovine Maleate (Methergine) 0.2 mg IM ASDIRECTED PRN PRN Reason: Post Hemorrhage Misoprostol (Cytotec) 200 mcg PO ONETIME PRN PRN Reason: Post Hemorrhage Nalbuphine HCl (Nubain) 10 mg IVPUSH Q1H PRN PRN Reason: Pain (severe 7-10) Ondansetron HCl (Zofran) 4 mg IVPUSH Q6H PRN PRN Reason: Nausea/Vomiting Sodium Chloride (Saline Flush) 10 ml FLUSH ASDIRECTED PRN PRN Reason: Keep Vein Open Sodium Chloride (Saline Flush) 2.5 ml FLUSH ASDIRECTED PRN PRN Reason: Keep Vein Open Sodium Chloride (Normal Saline) 10 ml IV ASDIRECTED PRN PRN Reason: IV Use Sterile Water (Sterile Water For Irrigation) 1,000 ml IRR ASDIRECTED PRN PRN Reason: delivery Terbutaline Sulfate (Brethine) 0.25 mg SUBCUT ASDIRECTED PRN PRN Reason: Tacysystole
[2019-06-15] MEDS ORDERED: Ropivacaine HCl/PF 0 ML ONE (16:22)
[2019-06-15] MEDS ORDERED: fentaNYL 100 MCG/2 ML SDV ONE (16:22)
[2019-06-15] MEDS ORDERED: Ropivacaine 0.2% 2 MG/ML 20 ML SDV ONE (16:22)
[2019-06-15] MEDS ORDERED: Ropivacaine HCl/PF 100 ML ONE (16:46)
--- NOTE | 2019-06-15 17:15 | PCM.PRNOTE ---
- Free Text/Narrative Note: Anes NOte Patietn requests epidural for L&. Sitting position. Level L3-L4 midline approach. Sterile technique Chloraprep scrub to lumbar area. Sterile fenestrated drape applied. Epidural space easily achieved single attempt with ease using CAMERON technique. CAMERON at 4 cm. Cath threaded 5 cm with ease. Secured at skin at 9 cm. Sterile clear adhesive dressing used to secure catheter. 1655 test 3 cc 1.5% lidoe with epi negative. 1658 load 10 cc 0.2% ropivicaine with 1 mcg cc fentanyl in slow divided doses. 1704 pump started with 90 cc same solution at 8 cc hr with 6 cc q 20 min prn bolus. [place] well. Time with patient [id number] Mack Rooney CRNA
--- NOTE | 2019-06-15 20:09 | PCM.DEL ---
L & D Note - General Info Date of Service: 06/15/19 Mother's Due Date: 06/12/19 - Delivery Note Labor: Augmented by ARM, Induced by Oxytocin Delivery Outcome: Livebirth Delivery Method: Spontaneous Vaginal Delivery-Single Presentation: Left Occiput Anterior (LUCY) Nuchal Cord: None Prep: Other Anesthesia Type: Epidural Amniotic Fluid Description: Clear Episiotomy Type: None Laceration: Vaginal Suture type: Vicryl Suture size: 3-0 Placenta: Intact, Spontaneous Cord: 3 Vessels Estimated Blood Loss: 300 Resuscitation Needed: No [place]: Suctioned Score 1 min: 8 Score 5 min: 9 Delivery Comments (Free Text/Narrative):: Liveborn female weight 7#14oz - General Info Date of Service: 06/15/19 - Patient Data Weight - Most Recent: 89.358 kg I&O - Last 24 Hours: Intake & Output 06/15/19 06/15/19 06/15/19 06:59 14:59 22:59 Intake Total 1999 Balance 1999 Lab Results Last 24 Hours: Laboratory Results - last 24 hr 06/15/19 06/15/19 Range/Units 12:45 12:45 WBC 15.06 H (4.0-11.0) K/uL RBC 4.25 L (4.30-5.90) M/uL Hgb 13.4 (12.0-16.0) g/dL Hct 38.1 (36.0-46.0) % MCV 89.6 (80.0-98.0) fL MCH 31.5 (27.0-32.0) pg MCHC 35.2 (31.0-37.0) g/dL RDW Std Deviation 38.6 (28.0-62.0) fl RDW Coeff of Brennon 12 (11.0-15.0) % Plt Count 173 (150-400) K/uL MPV 11.90 (7.40-12.00) fL Blood Type B NEGATIVE Antibody Screen NEGATIVE Med Orders - Current: Current Medications Butorphanol Tartrate (Stadol) 1 mg IVPUSH Q1H PRN PRN Reason: Pain Last Admin: 06/15/19 15:27 Dose: 1 mg Carboprost Tromethamine (Hemabate Ds) 250 mcg IM ASDIRECTED PRN PRN Reason: Post Hemorrhage Lactated Ringer's (Ringers, Lactated) 1,000 mls @ 150 mls/hr IV ASDIRECTED JOSIAH Last Admin: 06/15/19 18:27 Dose: 150 mls/hr Oxytocin/Sodium Chloride (Oxytocin 30 Unit/500 Ml-Ns) 30 unit in 500 mls @ 500 mls/hr IV TITRATE JOSIAH Oxytocin/Sodium Chloride (Oxytocin 30 Unit/500 Ml-Ns) 30 unit in 500 mls @ 2 mls/hr IV TITRATE JOSIAH; Protocol Last Titration: 06/15/19 19:00 Dose: 8 munits/min, 8 mls/hr Tranexamic Acid 1,000 mg/ (Sodium Chloride) 110 mls @ 660 mls/hr IV ONETIME PRN PRN Reason: Bleeding Lidocaine HCl (Xylocaine 1%) 50 ml INJECT ONETIME PRN PRN Reason: Laceration repair Methylergonovine Maleate (Methergine) 0.2 mg IM ASDIRECTED PRN PRN Reason: Post Hemorrhage Misoprostol (Cytotec) 200 mcg PO ONETIME PRN PRN Reason: Post Hemorrhage Nalbuphine HCl (Nubain) 10 mg IVPUSH Q1H PRN PRN Reason: Pain (severe 7-10) Ondansetron HCl (Zofran) 4 mg IVPUSH Q6H PRN PRN Reason: Nausea/Vomiting Last Admin: 06/15/19 18:20 Dose: 4 mg Sodium Chloride (Saline Flush) 10 ml FLUSH ASDIRECTED PRN PRN Reason: Keep Vein Open Sodium Chloride (Saline Flush) 2.5 ml FLUSH ASDIRECTED PRN PRN Reason: Keep Vein Open Sodium Chloride (Normal Saline) 10 ml IV ASDIRECTED PRN PRN Reason: IV Use Sterile Water (Sterile Water For Irrigation) 1,000 ml IRR ASDIRECTED PRN PRN Reason: delivery Terbutaline Sulfate (Brethine) 0.25 mg SUBCUT ASDIRECTED PRN PRN Reason: Tacysystole Discontinued Medications Fentanyl (Sublimaze) Confirm Administered Dose 100 mcg .ROUTE .STK-MED ONE Stop: 06/15/19 16:23 Ropivacaine (Naropin 0.2%) Confirm Administered Dose 100 mls @ as directed .ROUTE .STK-MED ONE Stop: 06/15/19 16:23 Ropivacaine (Naropin 0.2%) Confirm Administered Dose 100 mls @ as directed .ROUTE .STK-MED ONE Stop: 06/15/19 16:47 Ropivacaine (Naropin 0.2%) Confirm Administered Dose 20 ml .ROUTE .STK-MED ONE Stop: 06/15/19 16:23 - Problem List & Annotations (1) Vaginal delivery SNOMED Code(s): 125097214 Code(s): O80 - ENCOUNTER FOR FULL-TERM UNCOMPLICATED DELIVERY Status: Acute Current Visit: Yes - Problem List Review Problem List Initiated/Reviewed/Updated: Yes - My Orders Last 24 Hours: My Active Orders 06/15/19 12:20 Butorphanol [Stadol] 1 mg IVPUSH Q1H PRN Carboprost Tromethamine [Hemabate DS] 250 mcg IM ASDIRECTED PRN Lidocaine 1% [Xylocaine 1%] 50 ml INJECT ONETIME PRN Methylergonovine [Methergine] 0.2 mg IM ASDIRECTED PRN Nalbuphine [Nubain] 10 mg IVPUSH Q1H PRN Ondansetron [Zofran] 4 mg IVPUSH Q6H PRN Sodium Chloride 0.9% [Normal Saline] 10 ml IV ASDIRECTED PRN Sodium Chloride 0.9% [Saline Flush] 10 ml FLUSH ASDIRECTED PRN Sodium Chloride 0.9% [Saline Flush] 2.5 ml FLUSH ASDIRECTED PRN Terbutaline [Brethine] 0.25 mg SUBCUT ASDIRECTED PRN Tranexamic Acid [Cyklokapron] 1,000 mg Sodium Chloride 0.9% [Normal Saline] 100 ml IV ONETIME Water For Irrigation,Sterile [Sterile Water for Irrigation] 1,000 ml IRR ASDIRECTED PRN miSOPROStoL [Cytotec] 200 mcg PO ONETIME PRN Resuscitation Status Routine 06/15/19 12:21 Patient Status [ADT] Routine Bedrest Bathroom Privileges [RC] ASDIRECTED Communication Order [RC] ASDIRECTED Heart Tones [RC] CONTINUOUS Non Stress Test [RC] PER UNIT ROUTINE May Shower [RC] ASDIRECTED Notify Provider [RC] PRN Oxygen Therapy [RC] ASDIRECTED Up ad Cindi [RC] ASDIRECTED Vaginal Exam [RC] PRN Vital Signs [RC] PER UNIT ROUTINE Scalp Electrode [WOMSER] Per Unit Routine Peripheral IV Insertion Adult [OM.PC] Routine 06/15/19 12:30 Lactated Ringers [Ringers, Lactated] 1,000 ml IV ASDIRECTED Oxytocin/0.9 % Sodium Chloride [Oxytocin 30 Unit/500 ML-NS] 30 unit in 500 ml IV TITRATE Oxytocin/0.9 % Sodium Chloride [Oxytocin 30 Unit/500 ML-NS] 30 unit in 500 ml IV TITRATE Medication Administration Instruction [OM.PC] Q3H 06/15/19 12:45 RAPID PLASMA REAGIN, QUANT [REF] Routine 06/15/19 Dinner Clear Liquid Diet [DIET]
[2019-06-15] MEDS ORDERED: Ibuprofen 400 MG Tab PO PRN (20:11)
[2019-06-15] MEDS ORDERED: Bisacodyl 10 MG Supp RECTAL PRN (20:11)
[2019-06-15] MEDS ORDERED: oxyCODONE 5 MG Tab PO PRN (20:11)
[2019-06-15] MEDS ORDERED: Benzocaine/Menthol 20%-0.5% Spray 78 GM Cannister TOP PRN (20:11)
[2019-06-15] MEDS ORDERED: Witch Hazel Medicated Pads 40/Jar TOP PRN (20:11)
[2019-06-15] MEDS ORDERED: Acetaminophen 500 MG Tab PO PRN ×2 (20:11)
[2019-06-15] MEDS ORDERED: Lanolin 100% Cream 7 GM Tube TOP PRN (20:11)
[2019-06-15] MEDS ORDERED: Docusate Sodium 100 MG Cap PO PRN (20:11)
[2019-06-15] MEDS: Ibuprofen 800 MG Tab PO PRN (23:36)
--- NOTE | 2019-06-16 02:15 | OR ---
SURGEON: Iraida Zamorano M.D. DATE OF PROCEDURE: 06/15/2019 PREOPERATIVE DIAGNOSIS: 40-3/7 week intrauterine , postdates induction of labor. POSTOPERATIVE DIAGNOSIS: 40-3/7 week intrauterine , postdates induction of labor. PROCEDURES: 1. Pitocin induction of labor. 2. Artificial rupture of membranes. 3. Term spontaneous vaginal delivery. 4. Repair of vaginal laceration. PRIMARY SURGEON: Iraida Zamorano M.D. ANESTHESIA: Epidural. ESTIMATED BLOOD LOSS: Less than 300 mL. FINDINGS: Liveborn female. scores 9 and 10, weighing 3530 g. Cord blood was collected. The placenta was delivered spontaneously, Osei intact with 3 vessels. Upon inspection of the pelvis and perineum, there were no periurethral, vaginal sidewall, cervical, or rectal lacerations. There was a vaginal laceration at this focus at 6 o'clock, which was repaired. COMPLICATIONS: None known. DISPOSITION: Mother and baby are in LDR in good condition. BRIEF HISTORY: This is a 28-year-old female. She it is G1, P0, presents at 40-3/7 weeks' gestation for induction of labor. She was 3 to 4 cm dilated when she presented. She received Pitocin up to 4 milliunits per minute and had significant pain. Therefore, she did receive an epidural. Shortly thereafter, she had artificial rupture of membranes with clear fluid noted. Pitocin was increased up to a maximum of 8 milliunits per minute. She had progressed to complete. DESCRIPTION OF PROCEDURE: With the patient in the dorsal lithotomy position, the patient pushed over 3 contractions to a 5+ station at which time the head was delivered spontaneously and atraumatically over the perineum with support. With Elaine maneuver and slight rotation, the anterior and posterior shoulders were delivered without difficulty with subsequent delivery of the infant's body. The was bulb suctioned by nose and mouth, and after the cord had ceased to pulsate, it was doubly clamped and cut. Pitocin was initiated after delivery of the to assist with delivery of the placenta. Cord blood was collected for cord ABGs as well as routine cord blood sampling. With the Pitocin, fundal massage, and gentle traction on the cord, the placenta did deliver after 20 minutes with subsequent increased bleeding, not hemorrhage. However, Methergine was given to assist with mild uterine atony, and Pitocin was continued an additional 30 milliunits. Upon inspection of the pelvis and perineum, there was a small vaginal laceration at 6 o'clock, which was repaired with a running lock suture of 3-0 Vicryl, and there were no periurethral, vaginal sidewall, cervical, rectal, or perineal lacerations. EBL was less than 300 mL. There were no known complications. Mother and baby are in LDR in good condition. MUNA KASPER /[id number]
--- NOTE | 2019-06-16 07:18 | PCM.POSTAN ---
POST ANESTHESIA ASSESSMENT - MENTAL STATUS Mental Status: Alert - VITAL SIGNS Vital Signs: Last Vital Signs Temp 36.4 C 06/16/19 04:34 Pulse 51 L 06/16/19 04:34 Resp 16 06/16/19 04:34 BP 127/68 06/16/19 04:34 Pulse Ox 96 06/16/19 04:34 - RESPIRATORY Respiratory Status: Respiratory Rate WNL - CARDIOVASCULAR CV Status: Pulse Rate WNL - GASTROINTESTINAL GI Status: No Symptoms - POST OP HYDRATION Hydration Status: Adequate & Stable
--- NOTE | 2019-06-16 07:20 | PCM48HPAN ---
Post Anesthesia Note - EVALUATION WITHIN 48HRS OF ANESTHETIC Vital Signs in Normal Range: Yes Patient Participated in Evaluation: Yes Respiratory Function Stable: Yes Airway Patent: Yes Cardiovascular Function Stable: Yes Hydration Status Stable: Yes Pain Control Satisfactory: Yes Nausea and Vomiting Control Satisfactory: Yes Mental Status Recovered: Yes Vital Signs: Last Vital Signs Temp 36.4 C 06/16/19 04:34 Pulse 51 L 06/16/19 04:34 Resp 16 06/16/19 04:34 BP 127/68 06/16/19 04:34 Pulse Ox 96 06/16/19 04:34
[2019-06-16] MEDS: Ibuprofen 800 MG Tab PO PRN ×2 (07:47→16:18)
--- NOTE | 2019-06-16 08:48 | PCM.PNPP ---
- General Info Date of Service: 06/16/19 Functional Status: Reports: Pain Controlled - Review of Systems General: Reports: No Symptoms HEENT: Reports: No Symptoms Pulmonary: Reports: No Symptoms Cardiovascular: Reports: No Symptoms Gastrointestinal: Reports: No Symptoms Genitourinary: Reports: No Symptoms Musculoskeletal: Reports: No Symptoms Skin: Reports: No Symptoms Neurological: Reports: No Symptoms Psychiatric: Reports: No Symptoms - General Info Date of Service: 06/16/19 - Patient Data Vital Signs - Most Recent: Last Vital Signs Temp 36.4 C 06/16/19 07:38 Pulse 57 L 06/16/19 07:38 Resp 15 06/16/19 07:38 BP 112/75 06/16/19 07:38 Pulse Ox 95 06/16/19 07:38 Weight - Most Recent: 89.358 kg I&O - Last 24 Hours: Intake & Output 06/15/19 06/16/19 06/16/19 22:59 06:59 14:59 Intake Total 1999 Balance 1999 Lab Results - Last 24 Hours: Laboratory Results - last 24 hr 06/15/19 06/15/19 06/15/19 Range/Units 12:45 12:45 19:33 WBC 15.06 H (4.0-11.0) K/uL RBC 4.25 L (4.30-5.90) M/uL Hgb 13.4 (12.0-16.0) g/dL Hct 38.1 (36.0-46.0) % MCV 89.6 (80.0-98.0) fL MCH 31.5 (27.0-32.0) pg MCHC 35.2 (31.0-37.0) g/dL RDW Std Deviation 38.6 (28.0-62.0) fl RDW Coeff of Brennon 12 (11.0-15.0) % Plt Count 173 (150-400) K/uL MPV 11.90 (7.40-12.00) fL Cord ABG pH 7.295 (7.18-7.38) Cord ABG Base Excess -5 (-10--2) Cord VBG pH 7.324 (7.25-7.45) Cord VBG Base Excess -4 (-10--2) Blood Type B NEGATIVE Antibody Screen NEGATIVE Screen (NEGATIVE) RhIG Candidate? Rhogam Indicated 06/15/19 06/16/19 Range/Units 21:05 05:21 WBC (4.0-11.0) K/uL RBC (4.30-5.90) M/uL Hgb 12.9 (12.0-16.0) g/dL Hct 37.8 (36.0-46.0) % MCV (80.0-98.0) fL MCH (27.0-32.0) pg MCHC (31.0-37.0) g/dL RDW Std Deviation (28.0-62.0) fl RDW Coeff of Brennon (11.0-15.0) % Plt Count (150-400) K/uL MPV (7.40-12.00) fL Cord ABG pH (7.18-7.38) Cord ABG Base Excess (-10--2) Cord VBG pH (7.25-7.45) Cord VBG Base Excess (-10--2) Blood Type Antibody Screen Screen NEGATIVE (NEGATIVE) RhIG Candidate? YES Rhogam Indicated YES, BABY RH POS H Med Orders - Current: Current Medications Acetaminophen (Tylenol Extra Strength) 500 mg PO Q4H PRN PRN Reason: Pain Acetaminophen (Tylenol Extra Strength) 1,000 mg PO Q4H PRN PRN Reason: Pain Last Admin: 06/15/19 23:37 Dose: 1,000 mg Benzocaine/Menthol (Dermoplast Pain Relief 20%-0.5% [place]) 78 gm TOP ASDIRECTED PRN PRN Reason: Perineal Comfort Measure Bisacodyl (Dulcolax) 10 mg RECTAL ONETIME PRN PRN Reason: Constipation Docusate Sodium (Colace) 100 mg PO BID PRN PRN Reason: Constipation Emollient Ointment (Lansinoh Hpa) 0 gm TOP ASDIRECTED PRN PRN Reason: Sore Nipples Last Admin: 06/15/19 23:37 Dose: 1 applic Tranexamic Acid 1,000 mg/ (Sodium Chloride) 110 mls @ 660 mls/hr IV ONETIME PRN PRN Reason: Bleeding Ibuprofen (Motrin) 400 mg PO Q4H PRN PRN Reason: Pain Ibuprofen (Motrin) 800 mg PO Q6H PRN PRN Reason: Pain Last Admin: 06/16/19 07:47 Dose: 800 mg Oxycodone HCl (Oxycodone) 5 mg PO Q2H PRN PRN Reason: Pain Witch Massiel (Tucks) 1 pad TOP ASDIRECTED PRN PRN Reason: comfort care Discontinued Medications Butorphanol Tartrate (Stadol) 1 mg IVPUSH Q1H PRN PRN Reason: Pain Last Admin: 06/15/19 15:27 Dose: 1 mg Carboprost Tromethamine (Hemabate Ds) 250 mcg IM ASDIRECTED PRN PRN Reason: Post Hemorrhage Fentanyl (Sublimaze) Confirm Administered Dose 100 mcg .ROUTE .STK-MED ONE Stop: 06/15/19 16:23 Lactated Ringer's (Ringers, Lactated) 1,000 mls @ 150 mls/hr IV ASDIRECTED JOSIAH Last Admin: 06/15/19 18:27 Dose: 150 mls/hr Oxytocin/Sodium Chloride (Oxytocin 30 Unit/500 Ml-Ns) 30 unit in 500 mls @ 500 mls/hr IV TITRATE JOSIAH Last Admin: 06/15/19 20:08 Dose: 500 mls/hr Oxytocin/Sodium Chloride (Oxytocin 30 Unit/500 Ml-Ns) 30 unit in 500 mls @ 2 mls/hr IV TITRATE JOSIAH; Protocol Last Titration: 06/15/19 19:34 Dose: 999 munits/min, 999 mls/hr Tranexamic Acid 1,000 mg/ (Sodium Chloride) 110 mls @ 660 mls/hr IV ONETIME PRN PRN Reason: Bleeding Ropivacaine (Naropin 0.2%) Confirm Administered Dose 0 mls @ as directed .ROUTE .STK-MED ONE Stop: 06/15/19 16:23 Ropivacaine (Naropin 0.2%) Confirm Administered Dose 100 mls @ as directed .ROUTE .STK-MED ONE Stop: 06/15/19 16:47 Lidocaine HCl (Xylocaine 1%) 50 ml INJECT ONETIME PRN PRN Reason: Laceration repair Methylergonovine Maleate (Methergine) 0.2 mg IM ASDIRECTED PRN PRN Reason: Post Hemorrhage Last Admin: 06/15/19 20:08 Dose: 0.2 mg Misoprostol (Cytotec) 200 mcg PO ONETIME PRN PRN Reason: Post Hemorrhage Nalbuphine HCl (Nubain) 10 mg IVPUSH Q1H PRN PRN Reason: Pain (severe 7-10) Ondansetron HCl (Zofran) 4 mg IVPUSH Q6H PRN PRN Reason: Nausea/Vomiting Last Admin: 06/15/19 18:20 Dose: 4 mg Ropivacaine (Naropin 0.2%) Confirm Administered Dose 20 ml .ROUTE .[facility]-MED ONE Stop: 06/15/19 16:23 Sodium Chloride (Saline Flush) 10 ml FLUSH ASDIRECTED PRN PRN Reason: Keep Vein Open Sodium Chloride (Saline Flush) 2.5 ml FLUSH ASDIRECTED PRN PRN Reason: Keep Vein Open Sodium Chloride (Normal Saline) 10 ml IV ASDIRECTED PRN PRN Reason: IV Use Sterile Water (Sterile Water For Irrigation) 1,000 ml IRR ASDIRECTED PRN PRN Reason: delivery Terbutaline Sulfate (Brethine) 0.25 mg SUBCUT ASDIRECTED PRN PRN Reason: Tacysystole - Interaction Support Person: - Recovery Exam Fundal Tone: Firm Fundal Level: 3 Fingerbreadths Below Umbilicus Fundal Placement: Midline Lochia Amount: Scant Lochia Color: Rubra/Red - Exam General: Alert, Oriented Lungs: Normal Respiratory Effort GI/Abdominal Exam: Non-Tender, No Organomegaly, No Abnormal Bruit Extremities: Normal Inspection, Normal Range of Motion, Non-Tender Skin: Warm, Dry, Intact Neurological: No New Focal Deficit Psy/Mental Status: Alert, Normal Affect, Normal Mood - Problem List & Annotations (1) Vaginal delivery SNOMED Code(s): 038901303 Code(s): O80 - ENCOUNTER FOR FULL-TERM UNCOMPLICATED DELIVERY Status: Acute Current Visit: Yes - Problem List Review Problem List Initiated/Reviewed/Updated: Yes - My Orders Last 24 Hours: My Active Orders 06/15/19 12:21 Bedrest Bathroom Privileges [RC] ASDIRECTED Communication Order [RC] ASDIRECTED Heart Tones [RC] CONTINUOUS Non Stress Test [RC] PER UNIT ROUTINE May Shower [RC] ASDIRECTED Notify Provider [RC] PRN Oxygen Therapy [RC] ASDIRECTED Up ad Cindi [RC] ASDIRECTED Vaginal Exam [RC] PRN Vital Signs [RC] PER UNIT ROUTINE 06/15/19 12:45 RAPID PLASMA REAGIN, QUANT [REF] Routine 06/15/19 20:11 Patient Status [ADT] Routine May Shower [RC] ASDIRECTED Up ad Cindi [RC] ASDIRECTED Vital Signs [RC] PER UNIT ROUTINE Acetaminophen [Tylenol Extra Strength] 1,000 mg PO Q4H PRN Acetaminophen [Tylenol Extra Strength] 500 mg PO Q4H PRN Benzocaine/Menthol [Dermoplast Pain Relief 20%-0.5% [place]] 78 gm TOP ASDIRECTED PRN Bisacodyl [Dulcolax] 10 mg RECTAL ONETIME PRN Docusate Sodium [Colace] 100 mg PO BID PRN Ibuprofen [Motrin] 400 mg PO Q4H PRN Ibuprofen [Motrin] 800 mg PO Q6H PRN Lanolin [Lansinoh HPA] See Dose Instructions TOP ASDIRECTED PRN Tranexamic Acid [Cyklokapron] 1,000 mg Sodium Chloride 0.9% [Normal Saline] 100 ml IV ONETIME Witch Massiel [Tucks] 1 pad TOP ASDIRECTED PRN oxyCODONE 5 mg PO Q2H PRN Assess Lochia [WOMSER] Per Unit Routine Assess Uterine Involution [WOMSER] Per Unit Routine Peripheral IV Discontinue [OM.PC] Routine Resuscitation Status Routine 06/15/19 20:12 Perineal Care [OM.PC] Per Unit Routine 06/15/19 21:05 SCREEN [BBK] Routine RH IMMUNE GLOBULIN [BBK] Routine RHIG WORKUP, [BBK] Routine 06/16/19 Breakfast Regular Diet [DIET] - Assessment Assessment:: PPD#1 after , stable minimal lochia, well, would like to go home this evening. - Plan Plan:: Discharge instructions reviewed will dismiss when greater then 24 hours .
== END 2019-06-16 22:30 | disposition home or self-care (01) | DRG 560 ==
LOC: MW.OB 12:00 → OBSVTOIN 06-16 09:39
PROVIDERS: ADMIT Obstetrics & Gynecology; ATTEND Obstetrics & Gynecology
PROC: 10E0XZZ Delivery of Products of Conception, External Approach (ICD-10-PCS; principal; 2019-06-16)
PROC: 10907ZC Drainage of Amniotic Fluid, Therapeutic from Products of Conception, Via Natural or Artificial Opening (ICD-10-PCS; 2019-06-16)
PROC: 3E033VJ Introduction of Other Hormone into Peripheral Vein, Percutaneous Approach (ICD-10-PCS; 2019-06-16)
PROC: 0HQ9XZZ Repair Perineum Skin, External Approach (ICD-10-PCS; 2019-06-16)
PROC: 3E0R3BZ Introduction of Anesthetic Agent into Spinal Canal, Percutaneous Approach (ICD-10-PCS; 2019-06-16)
PROC: 00HU33Z Insertion of Infusion Device into Spinal Canal, Percutaneous Approach (ICD-10-PCS; 2019-06-16)
DX: O48.0 Post-term pregnancy (principal); Z3A.40 40 weeks gestation of pregnancy; Z37.0 Single live birth; O76 Abnormality in fetal heart rate and rhythm complicating labor and delivery; Z87.891 Personal history of nicotine dependence; O70.0 First degree perineal laceration during delivery
CPT/HCPCS: 01967; 36415; 36430; 51702; 59025; 59409; 82803; 85014; 85018; 85027; 85460; 86593; 86850; 86900; 86901; A9270-GY; J0595; J2210; J2405; J2590; J2792; J7120

== ENCOUNTER 2019-08-13 09:01 | Day surgery (SDC) | payer BC ==
[~2019-08-13 09:01] MED LIST: Doxycycline 200 MG in Dextrose 5% in Water 250 ML IV SCH; Lidocaine 2% 5 ML SDV ONE; Midazolam 1 MG/ML 2 ML SDV ONE; Ondansetron 4 MG/2 ML SDV ONE; Propofol 200 MG/20 ML SDV ONE; fentaNYL 100 MCG/2 ML SDV ONE
--- NOTE | 2019-08-13 09:37 | PCM.PREANE ---
Preanesthetic Assessment - Anesthesia/Transfusion/Family Hx Anesthesia History: Prior Anesthesia Without Reaction Family History of Anesthesia Reaction: No Transfusion History: No Prior Transfusion(s) Intubation History: Unknown - Review of Systems General: No Symptoms, Night Sweats Cardiovascular: No Symptoms Gastrointestinal: No Symptoms Neurological: No Symptoms Other: Reports: None - Physical Assessment NPO Status Date: 08/12/19 Vital Signs: Last Vital Signs Temp 96.8 F 08/13/19 09:15 Pulse 90 08/13/19 09:15 Resp 14 08/13/19 09:15 BP 107/72 08/13/19 09:15 Pulse Ox 96 08/13/19 09:15 Height: 5 ft 9 in Weight: 79.379 kg ASA Class: 1 Mental Status: Alert & Oriented x3 Airway Class: Mallampati = 1 Dentition: Reports: Normal Dentition ROM/Head Extension: Full Lungs: Clear to Auscultation, Normal Respiratory Effort Cardiovascular: Regular Rate, Regular Rhythm - Lab Values: Laboratory Last Values WBC 12.40 K/uL (4.0-11.0) H 08/12/19 13:50 RBC 4.64 M/uL (4.30-5.90) 08/12/19 13:50 Hgb 14.2 g/dL (12.0-16.0) 08/12/19 13:50 Hct 41.8 % (36.0-46.0) 08/12/19 13:50 MCV 90.1 fL (80.0-98.0) 08/12/19 13:50 MCH 30.6 pg (27.0-32.0) 08/12/19 13:50 MCHC 34.0 g/dL (31.0-37.0) 08/12/19 13:50 RDW Std Deviation 40.5 fl (28.0-62.0) 08/12/19 13:50 RDW Coeff of Brennon 12 % (11.0-15.0) 08/12/19 13:50 Plt Count 267 K/uL (150-400) 08/12/19 13:50 MPV 10.20 fL (7.40-12.00) 08/12/19 13:50 Nucleated RBC % 0.0 /100WBC 08/12/19 13:50 Nucleated RBCs # 0 K/uL 08/12/19 13:50 Blood Type B NEGATIVE 08/12/19 13:50 Antibody Screen POSITIVE 08/12/19 13:50 Antibody Identification Anti-D 08/12/19 13:50 - Allergies Allergies/Adverse Reactions: Allergies Allergy/AdvReac Type Severity Reaction Status Date / Time No Known Allergies Allergy Verified 08/09/19 08:27 - Blood Blood Available: No - Anesthesia Plan Pre-Op Medication Ordered: None - Acknowledgements Anesthesia Type Planned: General Anesthesia Pt an Appropriate Candidate for the Planned Anesthesia: Yes Alternatives and Risks of Anesthesia Discussed w Pt/Guardian: Yes Pt/Guardian Understands and Agrees with Anesthesia Plan: Yes Additional Comments: PMH: retained products, now 2 mo post PLAN: ga/lma PreAnesthesia Questionnaire - Past Health History Medical/Surgical History: Denies Medical/Surgical History HEENT History: Reports: Other (See Below) Other HEENT History: wears contacts/glasses Cardiovascular History: Reports: None Respiratory History: Reports: None Gastrointestinal History: Reports: None Genitourinary History: Reports: Pyelonephritis, Other (See Below) Other Genitourinary History: 2018 [employer] MACHINE History: Reports: , Other (See Below) Other OB/BYN History: 8 weeks post -breast feeding Musculoskeletal History: Reports: None Neurological History: Reports: None Psychiatric History: Reports: None Endocrine/Metabolic History: Reports: None Hematologic History: Reports: None Immunologic History: Reports: None Oncologic (Cancer) History: Reports: None Dermatologic History: Reports: None - Infectious Disease History Infectious Disease History: Reports: Chicken Pox, Influenza - Past Surgical History Head Surgeries/Procedures: Reports: None HEENT Surgical History: Reports: Oral Surgery, Other (See Below) Other HEENT Surgeries/Procedures: wisdom teeth removal Cardiovascular Surgical History: Reports: None Respiratory Surgical History: Reports: None GI Surgical History: Reports: None Endocrine Surgical History: Reports: None Neurological Surgical History: Reports: None Musculoskeletal Surgical History: Reports: None Oncologic Surgical History: Reports: None Dermatological Surgical History: Reports: None - SUBSTANCE USE Smoking Status *Q: Former Smoker Tobacco Use Within Last Twelve Months: No - HOME MEDS Home Medications: Home Meds Docusate Sodium [Colace] 100 mg PO DAILY 06/15/19 [History] Iron,Carbonyl/Vit C/Vit B12/Fa [Iron 100 Plus Tablet] 1 tab PO DAILY 06/15/19 [ History] Pnv No.95/Ferrous Fum/Folic AC [ Vitamin Tablet] 1 tab PO DAILY [History] Acetaminophen [Tylenol] 2 tab PO ASDIRECTED PRN 08/09/19 [History] Amoxicillin/Potassium Clav [Augmentin 875-125 Tablet] 1 tab PO BID 08/09/19 [ History] - CURRENT (IN HOUSE) MEDS Current Meds: Current Medications Doxycycline Hyclate 200 mg/ (Dextrose/Water) 250 mls @ 125 mls/hr IV Q12H JOSIAH Last Admin: 08/13/19 09:20 Dose: 125 mls/hr Discontinued Medications Fentanyl (Sublimaze) Confirm Administered Dose 100 mcg .ROUTE .STK-MED ONE Stop: 08/13/19 08:44 Fentanyl (Sublimaze) Confirm Administered Dose 100 mcg .ROUTE .STK-MED ONE Stop: 08/13/19 08:44 Lidocaine (Xylocaine-Mpf 2%) Confirm Administered Dose 5 ml .ROUTE .STK-MED ONE Stop: 08/13/19 08:44 Midazolam HCl (Versed 1 Mg/Ml) Confirm Administered Dose 2 mg .ROUTE .STK-MED ONE Stop: 08/13/19 08:45 Ondansetron HCl (Zofran) Confirm Administered Dose 4 mg .ROUTE .STK-MED ONE Stop: 08/13/19 08:44 Propofol (Diprivan 20 Ml) Confirm Administered Dose 200 mg .ROUTE .STK-MED ONE Stop: 08/13/19 08:44
[2019-08-13] MEDS ORDERED: Methylergonovine 0.2 MG/1 ML Amp ONE (10:04)
[2019-08-13] MEDS ORDERED: Carboprost Tromethamine 250 MCG/1 ML Amp ONE (10:04)
[2019-08-13] MEDS ORDERED: Naloxone 0.4 MG/ML Syringe IVPUSH PRN (10:20)
[2019-08-13] MEDS ORDERED: Atropine 0.1 MG/ML 10 ML Syringe IVPUSH PRN ×2 (10:20)
[2019-08-13] MEDS ORDERED: 50% Dextrose in Water 50 ML Syringe IVPUSH PRN (10:20)
[2019-08-13] MEDS ORDERED: Albuterol 0.083% 2.5 MG/3 ML Neb Soln NEB PRN (10:20)
[2019-08-13] MEDS ORDERED: fentaNYL 100 MCG/2 ML SDV IVPUSH PRN (10:20)
[2019-08-13] MEDS ORDERED: EPINEPHrine 1:10,000 1 MG/10 ML Syringe IVPUSH PRN (10:20)
[2019-08-13] MEDS ORDERED: Ketorolac 30 MG/ML SDV ONE (10:34)
--- NOTE | 2019-08-13 10:49 | PCM.OPNOTE ---
- General Post-Op/Procedure Note Date of Surgery/Procedure: 08/13/19 Operative Procedure(s): dilatation and curettage Findings: preop uterine anteverted, firm sounds to 8 cm, postop same. On ultrasound guidance 1 cm fragment of tissue completely removed Pre Op Diagnosis: retained products of conception Post-Op Diagnosis: Same Anesthesia Technique: General LMA Primary Surgeon: Iraida Zamorano Anesthesia Provider: Stevenson Negron Glass Sagger: Arlette Villegas Pathology: retained placenta fragment Fluid Replacement, Intraop: 350 EBL in mLs: 100 Complications: None Known Condition: Good
--- NOTE | 2019-08-13 12:03 | PCM.POSTAN ---
POST ANESTHESIA ASSESSMENT - MENTAL STATUS Mental Status: Alert, Oriented - VITAL SIGNS Vital Signs: Last Vital Signs Temp 97.3 F 08/13/19 11:10 Pulse 78 08/13/19 11:40 Resp 14 08/13/19 11:40 BP 108/64 08/13/19 11:40 Pulse Ox 98 08/13/19 11:40 - RESPIRATORY Respiratory Status: Respiratory Rate WNL, Airway Patent, O2 Saturation Stable - CARDIOVASCULAR CV Status: Pulse Rate WNL, Blood Pressure Stable - GASTROINTESTINAL GI Status: No Symptoms - POST OP HYDRATION Hydration Status: Adequate & Stable
--- NOTE | 2019-08-13 12:03 | PCM48HPAN ---
Post Anesthesia Note - EVALUATION WITHIN 48HRS OF ANESTHETIC Vital Signs in Normal Range: Yes Patient Participated in Evaluation: Yes Respiratory Function Stable: Yes Airway Patent: Yes Cardiovascular Function Stable: Yes Hydration Status Stable: Yes Pain Control Satisfactory: Yes Nausea and Vomiting Control Satisfactory: Yes Mental Status Recovered: Yes Vital Signs: Last Vital Signs Temp 97.3 F 08/13/19 11:10 Pulse 78 08/13/19 11:40 Resp 14 08/13/19 11:40 BP 108/64 08/13/19 11:40 Pulse Ox 98 08/13/19 11:40
--- NOTE | 2019-08-13 16:15 | OR ---
SURGEON: Iraida Zamorano M.D. DATE OF PROCEDURE: 08/13/2019 PREOPERATIVE DIAGNOSIS: Retained products of conception. POSTOPERATIVE DIAGNOSIS: Retained products of conception. PROCEDURE: Suction dilatation and curettage under ultrasound guidance. PRIMARY SURGEON: Iraida Zamorano MD. ANESTHESIA: General LMA. ESTIMATED BLOOD LOSS: 100 mL. FLUIDS: 300 mL of crystalloid. FINDINGS: Preoperatively, the uterus was anteverted, firm, 8-week size. Postoperatively, the same. On ultrasound, there was approximately a 1 cm piece of tissue at the uterine fundus, which was removed, and confirmed by ultrasound guidance. COMPLICATIONS: None known. DISPOSITION: Stable to Recovery. BRIEF HISTORY: This is a 28-year-old female. She presented for her visit with noting that she had not completely quit bleeding. Her bleeding was not heavy, but continued to be irregular with a few days of no bleeding, but most days with spotting. Therefore, ultrasound was obtained and confirmed a small piece of retained product of conception at the uterine fundus. I recommended proceeding with suction D and C at that time. However, she had a planned trip to [place]. Therefore, I placed her on antibiotics of Augmentin b.i.d. for 7 days, which she has completed. She now presents for suction D and C. Risks were discussed including bleeding, infection, uterine perforation with injury to surrounding organs, risk of thromboembolic event, risk of anesthesia, risk of Asherman syndrome. Understanding all these risks, she does desire to proceed. DESCRIPTION OF PROCEDURE: With the patient in dorsal lithotomy position, under adequate general LMA analgesia, the perineum and vagina were prepped with Betadine and draped in the usual fashion for vaginal surgery. SCDs were in place. The bladder had been drained with a red Mcqueen catheter. She had received 200 mg of doxycycline IV and an appropriate time-out was held. Bimanual examination was performed. Ultrasound guidance showed the retained product of conception, which was easily visualized. The uterus was sounded to 8 cm. The cervix was dilated easily to a 10 mm Hegar dilator. A 10 mm suction curette was placed to the fundus and turned repetitively. A small amount of tissue was obtained, but despite three passes with the suction curette, still approximately half of the tissue remained. Therefore, a sharp curette was utilized to scrape at the uterine fundus gently and a small piece of tissue was removed with this. Then, the suction curettage was repeated and finally the tissue could be seen being removed under ultrasound guidance. All the tissue was removed. The speculum and instruments were removed from the vagina. Final sponge, needle, and instrument counts were reported as correct. There were no known complications. The patient was transferred to Recovery in good condition. MUNA KASPER /[id number]
== END 2019-08-13 12:04 | disposition home or self-care (01) ==
LOC: MW.SDS 09:01
PROVIDERS: ATTEND Obstetrics & Gynecology
DX: O72.2 Delayed and secondary postpartum hemorrhage (principal); N85.4 Malposition of uterus; Z87.891 Personal history of nicotine dependence
CPT/HCPCS: 36415; 59160; 76998; 85027; 86850; 86870; 86900; 86901; J1885; J2001; J2250; J2405; J2704; J3010; J3490; J7060; J2210

== ENCOUNTER 2021-02-28 02:59 | Inpatient (IN) | payer BC ==
[2021-02-28] MEDS ORDERED: Methylergonovine 0.2 MG/1 ML Amp IM PRN (04:01)
[2021-02-28] MEDS ORDERED: Ondansetron 4 MG/2 ML SDV IVPUSH PRN ×2 (04:01→12:18)
[2021-02-28] MEDS ORDERED: Carboprost Tromethamine 250 MCG/1 ML Amp IM PRN (04:01)
[2021-02-28] MEDS ORDERED: Sodium Chloride 0.9% 2.5 ML Syringe FLUSH PRN (04:01)
[2021-02-28] MEDS ORDERED: Lidocaine 1% 50 ML MDV INJECT PRN (04:01)
[2021-02-28] MEDS ORDERED: Misoprostol 200 MCG Tab PO PRN (04:01)
[2021-02-28] MEDS ORDERED: Butorphanol 1 MG/ML SDV IVPUSH PRN (04:01)
[2021-02-28] MEDS ORDERED: Sodium Chloride 0.9% 10 ML SDV IV PRN (04:01)
[2021-02-28] MEDS ORDERED: Terbutaline 1 MG/ML SDV SUBCUT PRN (04:01)
[2021-02-28] MEDS ORDERED: Water For Irrigation,Sterile 1,000 ML Container IRR PRN (04:01)
[2021-02-28] MEDS ORDERED: Misoprostol 25 MCG (1/4 of 100 MCG) Tab VAG PRN ×2 (04:01)
[2021-02-28] MEDS ORDERED: Nalbuphine 10 MG/1 ML Vial IVPUSH PRN (04:01)
[2021-02-28] MEDS ORDERED: Sodium Chloride 0.9% 10 ML Syringe FLUSH PRN (04:01)
[2021-02-28] MEDS ORDERED: Tranexamic Acid 1,000 MG in Sodium Chloride 0.9% 100 ML IV PRN (04:01)
[2021-02-28] MEDS ORDERED: Oxytocin/0.9 % Sodium Chloride 30 UNIT/500 ML BAG IV SCH ×2 (04:15)
[2021-02-28] MEDS: Lactated Ringers 1,000 ML IV SCH ×3 (07:40→17:28)
[2021-02-28] MEDS ORDERED: Ropivacaine HCl/PF 200 ML ONE (08:04)
--- NOTE | 2021-02-28 08:40 | PCM.PREANE ---
Preanesthetic Assessment - Anesthesia/Transfusion/Family Hx Anesthesia History: Prior Anesthesia Without Reaction Family History of Anesthesia Reaction: No Transfusion History: No Prior Transfusion(s) Intubation History: Unknown - Review of Systems General: No Symptoms Pulmonary: No Symptoms Cardiovascular: No Symptoms Gastrointestinal: No Symptoms Neurological: No Symptoms Other: Reports: None - Physical Assessment Height: 5 ft 10 in Weight: 191 lb ASA Class: 2 Mental Status: Alert & Oriented x3 Airway Class: Mallampati = 3 Dentition: Reports: Normal Dentition ROM/Head Extension: Full Lungs: Clear to Auscultation, Normal Respiratory Effort Cardiovascular: Regular Rate, Regular Rhythm - Lab Values: Laboratory Last Values WBC 16.93 K/uL (4.0-11.0) H 02/28/21 04:25 RBC 4.45 M/uL (4.30-5.90) 02/28/21 04:25 Hgb 13.8 g/dL (12.0-16.0) 02/28/21 04:25 Hct 39.7 % (36.0-46.0) 02/28/21 04:25 MCV 89.2 fL (80.0-98.0) 02/28/21 04:25 MCH 31.0 pg (27.0-32.0) 02/28/21 04:25 MCHC 34.8 g/dL (31.0-37.0) 02/28/21 04:25 RDW Std Deviation 41.8 fl (28.0-62.0) 02/28/21 04:25 RDW Coeff of Brennon 13 % (11.0-15.0) 02/28/21 04:25 Plt Count 204 K/uL (150-400) 02/28/21 04:25 MPV 11.70 fL (7.40-12.00) 02/28/21 04:25 Nucleated RBC % 0.0 /100WBC 02/28/21 04:25 Nucleated RBCs # 0 K/uL 02/28/21 04:25 Urine Color YELLOW 02/28/21 03:05 Urine Appearance CLOUDY 02/28/21 03:05 Urine pH 6.5 (5.0-8.0) 02/28/21 03:05 Ur Specific [place] 1.010 (1.001-1.035) 02/28/21 03:05 Urine Protein 30 mg/dL (NEGATIVE) H 02/28/21 03:05 Urine Glucose (UA) NEGATIVE mg/dL (NEGATIVE) 02/28/21 03:05 Urine Ketones NEGATIVE mg/dL (NEGATIVE) 02/28/21 03:05 Urine Occult Blood LARGE (NEGATIVE) H 02/28/21 03:05 Urine Nitrite NEGATIVE (NEGATIVE) 02/28/21 03:05 Urine Bilirubin NEGATIVE (NEGATIVE) 02/28/21 03:05 Urine Urobilinogen 0.2 EU/dL (<2.0) 02/28/21 03:05 Ur Leukocyte Esterase TRACE (NEGATIVE) H 02/28/21 03:05 Membrane Rupture POSITIVE 02/28/21 03:20 SARS-CoV-2 RNA (RILEY) NEGATIVE (NEGATIVE) 02/28/21 04:05 Blood Type B NEGATIVE 02/28/21 04:25 Antibody Screen POSITIVE 02/28/21 04:25 Antibody Identification Anti-D 02/28/21 04:25 - Allergies Allergies/Adverse Reactions: Allergies Allergy/AdvReac Type Severity Reaction Status Date / Time No Known Allergies Allergy Verified 08/13/19 09:47 - Blood Blood Available: Yes Product(s) Available: PRBC - Anesthesia Plan Pre-Op Medication Ordered: None - Acknowledgements Anesthesia Type Planned: Epidural Pt an Appropriate Candidate for the Planned Anesthesia: Yes Alternatives and Risks of Anesthesia Discussed w Pt/Guardian: Yes Pt/Guardian Understands and Agrees with Anesthesia Plan: Yes PreAnesthesia Questionnaire - Past Health History Medical/Surgical History: Denies Medical/Surgical History HEENT History: Reports: Other (See Below) Other HEENT History: wears contacts/glasses Cardiovascular History: Reports: None Respiratory History: Reports: None Gastrointestinal History: Reports: None Genitourinary History: Reports: Pyelonephritis, Other (See Below) 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: , Other (See Below) Other OB/BYN History: 8 weeks post -breast feeding Musculoskeletal History: Reports: None Neurological History: Reports: None Psychiatric History: Reports: None Endocrine/Metabolic History: Reports: None Hematologic History: Reports: None Immunologic History: Reports: None Oncologic (Cancer) History: Reports: None Dermatologic History: Reports: None - Infectious Disease History Infectious Disease History: Reports: Chicken Pox, Influenza - Past Surgical History Head Surgeries/Procedures: Reports: None HEENT Surgical History: Reports: Oral Surgery, Other (See Below) Other HEENT Surgeries/Procedures: wisdom teeth removal Cardiovascular Surgical History: Reports: None Respiratory Surgical History: Reports: None GI Surgical History: Reports: None Endocrine Surgical History: Reports: None Neurological Surgical History: Reports: None Musculoskeletal Surgical History: Reports: None Oncologic Surgical History: Reports: None Dermatological Surgical History: Reports: None - HOME MEDS Home Medications: Home Meds Docusate Sodium [Colace] 100 mg PO DAILY 06/15/19 [History] Iron,Carb/Vit C/Vit B12/Folic [Iron 100 Plus Tablet] 1 tab PO DAILY 06/15/19 [History] Pnv No.95/Ferrous Fum/Folic AC [ Vitamin Tablet] 1 tab PO DAILY 06/15/19 [History] Acetaminophen [Tylenol] 2 tab PO ASDIRECTED PRN 08/09/19 [History] Amoxicillin/Potassium Clav [Augmentin 875-125 Tablet] 1 tab PO BID 08/09/19 [History] - CURRENT (IN HOUSE) MEDS Current Meds: Current Medications Butorphanol Tartrate (Butorphanol 1 Mg/Ml Sdv) 1 mg IVPUSH Q1H PRN PRN Reason: Pain (severe 7-10) Carboprost Tromethamine (Carboprost Tromethamine 250 Mcg/1 Ml Amp) 250 mcg IM ASDIRECTED PRN PRN Reason: Post Hemorrhage Lactated Ringer's (Ringers, Lactated) 1,000 mls @ 150 mls/hr IV ASDIRECTED JOSIAH Last Admin: 02/28/21 07:40 Dose: 999 mls/hr Documented by: Oxytocin/Sodium Chloride (Oxytocin 30 Unit/500 Ml-Ns) 30 unit in 500 mls @ 999 mls/hr IV TITRATE [facility] Tranexamic Acid 1,000 mg/ (Sodium Chloride) 110 mls @ 660 mls/hr IV ONETIME PRN PRN Reason: Bleeding Oxytocin/Sodium Chloride (Oxytocin 30 Unit/500 Ml-Ns) 30 unit in 500 mls @ 2 mls/hr IV TITRATE [facility]; Protocol Lidocaine HCl (Lidocaine 1% 50 Ml Mdv) 50 ml INJECT ONETIME PRN PRN Reason: Laceration repair Methylergonovine Maleate (Methylergonovine 0.2 Mg/1 Ml Amp) 0.2 mg IM ASDIRECTED PRN PRN Reason: Post Hemorrhage Misoprostol (Misoprostol 200 Mcg Tab) 200 mcg PO ONETIME PRN PRN Reason: Post Hemorrhage Misoprostol (Misoprostol 25 Mcg (1/4 Of 100 Mcg) Tab) 25 mcg VAG ONETIME PRN PRN Reason: Cervical Ripening Misoprostol (Misoprostol 25 Mcg (1/4 Of 100 Mcg) Tab) 25 mcg VAG Q4H PRN PRN Reason: Cervical Ripening Last Admin: 02/28/21 04:59 Dose: 25 mcg Documented by: Nalbuphine HCl (Nalbuphine 10 Mg/1 Ml Vial) 10 mg IVPUSH Q1H PRN PRN Reason: Pain (severe 7-10) Ondansetron HCl (Ondansetron 4 Mg/2 Ml Sdv) 4 mg IVPUSH Q4H PRN PRN Reason: Nausea/Vomiting Sodium Chloride (Sodium Chloride 0.9% 10 Ml Syringe) 10 ml FLUSH ASDIRECTED PRN PRN Reason: Keep Vein Open Sodium Chloride (Sodium Chloride 0.9% 2.5 Ml Syringe) 2.5 ml FLUSH ASDIRECTED PRN PRN Reason: Keep Vein Open Sodium Chloride (Sodium Chloride 0.9% 10 Ml Sdv) 10 ml IV ASDIRECTED PRN PRN Reason: IV Use Sterile Water (Water For Irrigation,Sterile 1,000 Ml Container) 1,000 ml IRR ASDIRECTED PRN PRN Reason: delivery Terbutaline Sulfate (Terbutaline 1 Mg/Ml Sdv) 0.25 mg SUBCUT ASDIRECTED PRN PRN Reason: Tacysystole Discontinued Medications Ropivacaine (Naropin 0.2%) Confirm Administered Dose 200 mls @ as directed .ROUTE .STK-MED ONE Stop: 02/28/21 08:05 - Pre-Procedure Checklist Attending Provider Aware: Yes Chart Reviewed: Yes Consent Signed: Yes Labs Reviewed: Yes VS/FHR Reviewed: Yes Patient Identification Confirmation Method: Reports: Verbal Patient Pt an Appropriate Candidate for the Planned Anesthesia: Yes Alternatives and Risks of Anesthesia Discussed w Pt/Guardian: Yes - Procedure Procedure Start Date: 02/28/21 Procedure Start Time: 08:[address]: Reports: Blood Pressure, Heart Rate, SPO2 Functional IV: Yes Safety Measures: Reports: Patient Identified, Procedure Verified, Site Verified, Procedure Time Out Patient Position: Reports: Sitting Prep: Reports: Betadine x3, Sterile Drape Local Anesthetic: Reports: Intradermal Wheal w Lidocaine 1% Regional Placement Level: Reports: L3-4 Needle: Reports: 17 g Touhy Approach: Reports: Midline Technique: Reports: CAMERON Plastic Syringe Parasthesia: Reports: None Fluid Obtained: Reports: None Test Dose Time: 08:17 Test Dose Medication: Reports: Lidocaine 1.5% w Epinephrine 1:200,000 Test Dose Response: Reports: Negative Loading Dose Time: 08:16 Loading Dose Medication: bupivicaine 0.25% 10cc Loading Dose Patient Position: sitting Continuous Infusion Start Time: 08:20 Continuous Infusion Medication: ropivicaine 0.2% Continuous Infusion Rate: 16 Continuous Infusion PCS Bolus Option: 4 Patient Position Post Placement: Reports: Supline/LITA VS and FHR Monitored in Unit Post Placement: Yes Procedure End Date: 02/28/21 Procedure End Time: 09:10
--- NOTE | 2021-02-28 12:07 | PCM.DEL ---
<CordeliaDavina - Last Filed: 02/28/21 14:19> L & D Note - General Info Date of Service: 02/28/21 Mother's Due Date: 03/15/21 - Delivery Note Labor: Spontaneous, Augmented by Oxytocin Cervical Ripening Method: Other (see below) Other Cervical Ripening Method: cytotec Delivery Outcome: Livebirth Delivery Method: Spontaneous Vaginal Delivery-Single Delivery Mode: Spontaneous Presentation: Left Occiput Anterior (LUCY) Nuchal Cord: Present (nuchal x1) Anesthesia Type: Epidural Amniotic Fluid Description: Clear Episiotomy Type: None Laceration: None Placenta: Manual Removal, Retained, Partial Cord: 3 Vessels Estimated Blood Loss: 2,500 Resuscitation Needed: No : Bulb Syringe, Stimulated, Warmed, [place] Used, Warmer Used Score 1 min: 8 Score 5 min: 9 Post Delivery Events: Retained Placenta Second Stage Interventions: Reports: Second Nurse Assessed Progress of Descent, Second Nurse Reviewed Contraction Pattern, Second Nurse Reviewed Heart Tones, Encouragement Given, Pushing Effectively, Pushing, Pulls Own Legs Back, Pushing, Stirrups/Leg Supports Delivery Comments (Free Text/Narrative):: of live female, apgars 8 and 9, weight 6lb 14oz - General Info Date of Service: 02/28/21 - Patient Data Weight - Most Recent: 191 lb Lab Results Last 24 Hours: Laboratory Results - last 24 hr 02/28/21 02/28/21 02/28/21 Range/Units 03:05 03:20 04:05 WBC (4.0-11.0) K/uL RBC (4.30-5.90) M/uL Hgb (12.0-16.0) g/dL Hct (36.0-46.0) % MCV (80.0-98.0) fL MCH (27.0-32.0) pg MCHC (31.0-37.0) g/dL RDW Std Deviation (28.0-62.0) fl RDW Coeff of Brennon (11.0-15.0) % Plt Count (150-400) K/uL MPV (7.40-12.00) fL Nucleated RBC % /100WBC Nucleated RBCs # K/uL Urine Color YELLOW Urine Appearance CLOUDY Urine pH 6.5 (5.0-8.0) Ur Specific [place] 1.010 (1.001-1.035) Urine Protein 30 H (NEGATIVE) mg/dL Urine Glucose (UA) NEGATIVE (NEGATIVE) mg/dL Urine Ketones NEGATIVE (NEGATIVE) mg/dL Urine Occult Blood LARGE H (NEGATIVE) Urine Nitrite NEGATIVE (NEGATIVE) Urine Bilirubin NEGATIVE (NEGATIVE) Urine Urobilinogen 0.2 (<2.0) EU/dL Ur Leukocyte Esterase TRACE H (NEGATIVE) Membrane Rupture POSITIVE SARS-CoV-2 RNA (RILEY) NEGATIVE (NEGATIVE) Blood Type Antibody Screen Antibody Identification 02/28/21 02/28/21 Range/Units 04:25 04:25 WBC 16.93 H (4.0-11.0) K/uL RBC 4.45 (4.30-5.90) M/uL Hgb 13.8 (12.0-16.0) g/dL Hct 39.7 (36.0-46.0) % MCV 89.2 (80.0-98.0) fL MCH 31.0 (27.0-32.0) pg MCHC 34.8 (31.0-37.0) g/dL RDW Std Deviation 41.8 (28.0-62.0) fl RDW Coeff of Brennon 13 (11.0-15.0) % Plt Count 204 (150-400) K/uL MPV 11.70 (7.40-12.00) fL Nucleated RBC % 0.0 /100WBC Nucleated RBCs # 0 K/uL Urine Color Urine Appearance Urine pH (5.0-8.0) Ur Specific [place] (1.001-1.035) Urine Protein (NEGATIVE) mg/dL Urine Glucose (UA) (NEGATIVE) mg/dL Urine Ketones (NEGATIVE) mg/dL Urine Occult Blood (NEGATIVE) Urine Nitrite (NEGATIVE) Urine Bilirubin (NEGATIVE) Urine Urobilinogen (<2.0) EU/dL Ur Leukocyte Esterase (NEGATIVE) Membrane Rupture SARS-CoV-2 RNA (RILEY) (NEGATIVE) Blood Type B NEGATIVE Antibody Screen POSITIVE Antibody Identification Anti-D Med Orders - Current: Current Medications Butorphanol Tartrate (Butorphanol 1 Mg/Ml Sdv) 1 mg IVPUSH Q1H PRN PRN Reason: Pain (severe 7-10) Carboprost Tromethamine (Carboprost Tromethamine 250 Mcg/1 Ml Amp) 250 mcg IM ASDIRECTED PRN PRN Reason: Post Hemorrhage Lactated Ringer's (Ringers, Lactated) 1,000 mls @ 150 mls/hr IV ASDIRECTED JOSIAH Last Admin: 02/28/21 09:10 Dose: 150 mls/hr Documented by: Oxytocin/Sodium Chloride (Oxytocin 30 Unit/500 Ml-Ns) 30 unit in 500 mls @ 999 mls/hr IV TITRATE JOSIAH Tranexamic Acid 1,000 mg/ (Sodium Chloride) 110 mls @ 660 mls/hr IV ONETIME PRN PRN Reason: Bleeding Oxytocin/Sodium Chloride (Oxytocin 30 Unit/500 Ml-Ns) 30 unit in 500 mls @ 2 mls/hr IV TITRATE JOSIAH; Protocol Last Titration: 02/28/21 10:02 Dose: 4 munits/min, 4 mls/hr Documented by: Lidocaine HCl (Lidocaine 1% 50 Ml Mdv) 50 ml INJECT ONETIME PRN PRN Reason: Laceration repair Methylergonovine Maleate (Methylergonovine 0.2 Mg/1 Ml Amp) 0.2 mg IM ASDIRECTED PRN PRN Reason: Post Hemorrhage Misoprostol (Misoprostol 200 Mcg Tab) 200 mcg PO ONETIME PRN PRN Reason: Post Hemorrhage Misoprostol (Misoprostol 25 Mcg (1/4 Of 100 Mcg) Tab) 25 mcg VAG ONETIME PRN PRN Reason: Cervical Ripening Misoprostol (Misoprostol 25 Mcg (1/4 Of 100 Mcg) Tab) 25 mcg VAG Q4H PRN PRN Reason: Cervical Ripening Last Admin: 02/28/21 04:59 Dose: 25 mcg Documented by: Nalbuphine HCl (Nalbuphine 10 Mg/1 Ml Vial) 10 mg IVPUSH Q1H PRN PRN Reason: Pain (severe 7-10) Ondansetron HCl (Ondansetron 4 Mg/2 Ml Sdv) 4 mg IVPUSH Q4H PRN PRN Reason: Nausea/Vomiting Last Admin: 02/28/21 09:08 Dose: 4 mg Documented by: Sodium Chloride (Sodium Chloride 0.9% 10 Ml Syringe) 10 ml FLUSH ASDIRECTED PRN PRN Reason: Keep Vein Open Sodium Chloride (Sodium Chloride 0.9% 2.5 Ml Syringe) 2.5 ml FLUSH ASDIRECTED PRN PRN Reason: Keep Vein Open Sodium Chloride (Sodium Chloride 0.9% 10 Ml Sdv) 10 ml IV ASDIRECTED PRN PRN Reason: IV Use Sterile Water (Water For Irrigation,Sterile 1,000 Ml Container) 1,000 ml IRR ASDIRECTED PRN PRN Reason: delivery Terbutaline Sulfate (Terbutaline 1 Mg/Ml Sdv) 0.25 mg SUBCUT ASDIRECTED PRN PRN Reason: Tacysystole Discontinued Medications Ropivacaine (Naropin 0.2%) Confirm Administered Dose 200 mls @ as directed .ROUTE .[facility] ONE Stop: 02/28/21 08:05 - Problem List & Annotations (1) Retained placenta SNOMED Code(s): 156369910 Code(s): O73.0 - RETAINED PLACENTA WITHOUT HEMORRHAGE Status: Acute Current Visit: Yes Qualifiers: Retained placenta detail: portions of placenta Qualified Code(s): O73.1 - Retained portions of placenta and membranes, without hemorrhage (2) Vaginal delivery SNOMED Code(s): 507191203 Code(s): O80 - ENCOUNTER FOR FULL-TERM UNCOMPLICATED DELIVERY Status: Acute Current Visit: No (3) hemorrhage SNOMED Code(s): 49015892 Code(s): O72.1 - OTHER IMMEDIATE HEMORRHAGE Status: Acute Current Visit: Yes - Problem List Review Problem List Initiated/Reviewed/Updated: Yes - Assessment Assessment:: Pt is a 33 yo G2 now P2 female at 37w6d gestation s/p PPD#0. s/p dilation and curettage due to retained placenta following unsuccessful attempt at manual removal Pt had approximately 2,500 mL blood loss successfully controlled with pitocin, methergine, and TXA Pt tolerated procedure well. - Plan Plan:: Monitor Hgb levels with serial CBC q4h Give 1 unit blood if Hgb<7 Rh negative, Antibody screen negative GBS negative, Rubella immune PO pain medications ordered PRN Regular diet as tolerated Encourage ambulation and fluid intake when able nursing assistance PRN Dispo: Stable in PACU following D&C, admit to , anticipate discharge 48 hours post delivery pending pt and baby condition <Juan Carlos Ann - Last Filed: 02/28/21 17:30> - Patient Data Vitals - Most Recent: Last Vital Signs Temp 37.2 C 02/28/21 16:00 Pulse 132 H 02/28/21 16:00 Resp 20 02/28/21 16:00 BP 113/67 02/28/21 16:00 Pulse Ox 98 02/28/21 16:00 I&O - Last 24 Hours: Intake & Output 02/28/21 02/28/21 02/28/21 06:59 14:59 22:59 Intake Total 3800 3000 Output Total 200 Balance 3600 3000 Lab Results Last 24 Hours: Laboratory Results - last 24 hr 02/28/21 02/28/21 02/28/21 Range/Units 03:05 03:20 04:05 WBC (4.0-11.0) K/uL RBC (4.30-5.90) M/uL Hgb (12.0-16.0) g/dL Hct (36.0-46.0) % MCV (80.0-98.0) fL MCH (27.0-32.0) pg MCHC (31.0-37.0) g/dL RDW Std Deviation (28.0-62.0) fl RDW Coeff of Brennon (11.0-15.0) % Plt Count (150-400) K/uL MPV (7.40-12.00) fL Nucleated RBC % /100WBC Nucleated RBCs # K/uL Sodium (136-145) mmol/L Potassium (3.5-5.1) mmol/L Chloride (98-107) mmol/L Carbon Dioxide (21.0-32.0) mmol/L BUN (7.0-18.0) mg/dL Creatinine (0.6-1.0) mg/dL Est Cr Clr Drug Dosing mL/min Estimated GFR (MDRD) ml/min Glucose (74-106) mg/dL Calcium (8.5-10.1) mg/dL Urine Color YELLOW Urine Appearance CLOUDY Urine pH 6.5 (5.0-8.0) Ur Specific [place] 1.010 (1.001-1.035) Urine Protein 30 H (NEGATIVE) mg/dL Urine Glucose (UA) NEGATIVE (NEGATIVE) mg/dL Urine Ketones NEGATIVE (NEGATIVE) mg/dL Urine Occult Blood LARGE H (NEGATIVE) Urine Nitrite NEGATIVE (NEGATIVE) Urine Bilirubin NEGATIVE (NEGATIVE) Urine Urobilinogen 0.2 (<2.0) EU/dL Ur Leukocyte Esterase TRACE H (NEGATIVE) Membrane Rupture POSITIVE SARS-CoV-2 RNA (RILEY) NEGATIVE (NEGATIVE) Blood Type Antibody Screen Antibody Identification Screen (NEGATIVE) RhIG Candidate? Rhogam Indicated Crossmatch 02/28/21 02/28/21 02/28/21 Range/Units 04:25 04:25 13:30 WBC 16.93 H Cancelled (4.0-11.0) K/uL RBC 4.45 Cancelled (4.30-5.90) M/uL Hgb 13.8 Cancelled (12.0-16.0) g/dL Hct 39.7 Cancelled (36.0-46.0) % MCV 89.2 Cancelled (80.0-98.0) fL MCH 31.0 Cancelled (27.0-32.0) pg MCHC 34.8 Cancelled (31.0-37.0) g/dL RDW Std Deviation 41.8 Cancelled (28.0-62.0) fl RDW Coeff of Brennon 13 Cancelled (11.0-15.0) % Plt Count 204 Cancelled (150-400) K/uL MPV 11.70 Cancelled (7.40-12.00) fL Nucleated RBC % 0.0 Cancelled /100WBC Nucleated RBCs # 0 Cancelled K/uL Sodium (136-145) mmol/L Potassium (3.5-5.1) mmol/L Chloride (98-107) mmol/L Carbon Dioxide (21.0-32.0) mmol/L BUN (7.0-18.0) mg/dL Creatinine (0.6-1.0) mg/dL Est Cr Clr Drug Dosing mL/min Estimated GFR (MDRD) ml/min Glucose (74-106) mg/dL Calcium (8.5-10.1) mg/dL Urine Color Urine Appearance Urine pH (5.0-8.0) Ur Specific [place] (1.001-1.035) Urine Protein (NEGATIVE) mg/dL Urine Glucose (UA) (NEGATIVE) mg/dL Urine Ketones (NEGATIVE) mg/dL Urine Occult Blood (NEGATIVE) Urine Nitrite (NEGATIVE) Urine Bilirubin (NEGATIVE) Urine Urobilinogen (<2.0) EU/dL Ur Leukocyte Esterase (NEGATIVE) Membrane Rupture SARS-CoV-2 RNA (RILEY) (NEGATIVE) Blood Type B NEGATIVE Antibody Screen POSITIVE Antibody Identification Anti-D Screen (NEGATIVE) RhIG Candidate? Rhogam Indicated Crossmatch See Detail 02/28/21 02/28/21 02/28/21 Range/Units 14:28 14:28 15:15 WBC 33.38 H (4.0-11.0) K/uL RBC 3.65 L (4.30-5.90) M/uL Hgb 11.3 L (12.0-16.0) g/dL Hct 33.1 L (36.0-46.0) % MCV 90.7 (80.0-98.0) fL MCH 31.0 (27.0-32.0) pg MCHC 34.1 (31.0-37.0) g/dL RDW Std Deviation 42.9 (28.0-62.0) fl RDW Coeff of Brennon 13 (11.0-15.0) % Plt Count 176 (150-400) K/uL MPV 11.20 (7.40-12.00) fL Nucleated RBC % 0.0 /100WBC Nucleated RBCs # 0 K/uL Sodium 138 (136-145) mmol/L Potassium 4.0 (3.5-5.1) mmol/L Chloride 106 (98-107) mmol/L Carbon Dioxide 22.1 (21.0-32.0) mmol/L BUN 6 L (7.0-18.0) mg/dL Creatinine 0.5 L (0.6-1.0) mg/dL Est Cr Clr Drug Dosing 176.29 mL/min Estimated GFR (MDRD) > 60.0 ml/min Glucose 97 (74-106) mg/dL Calcium 7.9 L (8.5-10.1) mg/dL Urine Color Urine Appearance Urine pH (5.0-8.0) Ur Specific [place] (1.001-1.035) Urine Protein (NEGATIVE) mg/dL Urine Glucose (UA) (NEGATIVE) mg/dL Urine Ketones (NEGATIVE) mg/dL Urine Occult Blood (NEGATIVE) Urine Nitrite (NEGATIVE) Urine Bilirubin (NEGATIVE) Urine Urobilinogen (<2.0) EU/dL Ur Leukocyte Esterase (NEGATIVE) Membrane Rupture SARS-CoV-2 RNA (RILEY) (NEGATIVE) Blood Type Antibody Screen Antibody Identification Screen NEGATIVE (NEGATIVE) RhIG Candidate? YES Rhogam Indicated YES, BABY RH POS H Crossmatch See Detail Med Orders - Current: Current Medications Acetaminophen (Acetaminophen 500 Mg Tab) 500 mg PO Q4H PRN PRN Reason: Pain (mild 1-3) Acetaminophen (Acetaminophen 500 Mg Tab) 1,000 mg PO Q4H PRN PRN Reason: Pain (mild 1-3) Albuterol (Albuterol 0.083% 2.5 Mg/3 Ml Neb Soln) 2.5 mg NEB ONETIME PRN PRN Reason: Wheezing Benzocaine/Menthol (Benzocaine/Menthol 20%-0.5% [place] 78 Gm Cannister) 78 gm TOP ASDIRECTED PRN PRN Reason: Perineal Comfort Measure Last Admin: 02/28/21 15:21 Dose: 1 can Documented by: Bisacodyl (Bisacodyl 10 Mg Supp) 10 mg RECTAL ONETIME PRN PRN Reason: Constipation Carboprost Tromethamine (Carboprost Tromethamine 250 Mcg/1 Ml Amp) 250 mcg IM ASDIRECTED PRN PRN Reason: Post Hemorrhage Docusate Sodium (Docusate Sodium 100 Mg Cap) 100 mg PO Q12H PRN PRN Reason: Constipation Droperidol (Droperidol 5 Mg/2 Ml Sdv) 0.625 mg IVPUSH ONETIME PRN PRN Reason: Nausea/Vomiting Emollient Ointment (Lanolin 100% Cream 7 Gm Tube) 0 gm TOP ASDIRECTED PRN PRN Reason: Sore Nipples Last Admin: 02/28/21 15:20 Dose: 1 tube Documented by: Oxytocin/Sodium Chloride (Oxytocin 30 Unit/500 Ml-Ns) 30 unit in 500 mls @ 999 mls/hr IV TITRATE JOSIAH Tranexamic Acid 1,000 mg/ (Sodium Chloride) 110 mls @ 660 mls/hr IV ONETIME PRN PRN Reason: Bleeding Ibuprofen (Ibuprofen 400 Mg Tab) 400 mg PO Q4H PRN PRN Reason: Pain (mild 1-3) Ibuprofen (Ibuprofen 800 Mg Tab) 800 mg PO Q6H PRN PRN Reason: Pain (mild 1-3) Last Admin: 02/28/21 17:26 Dose: 800 mg Documented by: Methylergonovine Maleate (Methylergonovine 0.2 Mg/1 Ml Amp) 0.2 mg IM ASDIRECTED PRN PRN Reason: Post Hemorrhage Metoclopramide HCl (Metoclopramide 10 Mg/2 Ml Sdv) 10 mg IVPUSH ONETIME PRN PRN Reason: Nausea/Vomiting Misoprostol (Misoprostol 200 Mcg Tab) 200 mcg PO ONETIME PRN PRN Reason: Post Hemorrhage Naloxone HCl (Naloxone 0.4 Mg/Ml Syringe) 0.1 mg IVPUSH ASDIRECTED PRN PRN Reason: Respiratory Depression Ondansetron HCl (Ondansetron 4 Mg/2 Ml Sdv) 4 mg IVPUSH Q4H PRN PRN Reason: Nausea/Vomiting Last Admin: 02/28/21 09:08 Dose: 4 mg Documented by: Ondansetron HCl (Ondansetron 4 Mg/2 Ml Sdv) 4 mg IVPUSH ONETIME PRN PRN Reason: Nausea/Vomiting Oxycodone HCl (Oxycodone 5 Mg Tab) 5 mg PO Q2H PRN PRN Reason: Pain (severe 7-10) Sodium Chloride (Sodium Chloride 0.9% 10 Ml Syringe) 10 ml FLUSH ASDIRECTED PRN PRN Reason: Keep Vein Open Sodium Chloride (Sodium Chloride 0.9% 2.5 Ml Syringe) 2.5 ml FLUSH ASDIRECTED PRN PRN Reason: Keep Vein Open Sodium Chloride (Sodium Chloride 0.9% 10 Ml Sdv) 10 ml IV ASDIRECTED PRN PRN Reason: IV Use Witch Massiel (Witch Massiel Medicated Pads 40/Jar) 1 pad TOP ASDIRECTED PRN PRN Reason: comfort care Last Admin: 02/28/21 15:21 Dose: 1 tub Documented by: Discontinued Medications Butorphanol Tartrate (Butorphanol 1 Mg/Ml Sdv) 1 mg IVPUSH Q1H PRN PRN Reason: Pain (severe 7-10) Fentanyl (Fentanyl 100 Mcg/2 Ml Sdv) 50 mcg IVPUSH Q5M PRN PRN Reason: Pain (mild 1-3) Lactated Ringer's (Ringers, Lactated) 1,000 mls @ 150 mls/hr IV ASDIRECTED JOSIAH Last Admin: 02/28/21 17:28 Dose: 150 mls/hr Documented by: Oxytocin/Sodium Chloride (Oxytocin 30 Unit/500 Ml-Ns) 30 unit in 500 mls @ 2 mls/hr IV TITRATE JOSIAH; Protocol Last Titration: 02/28/21 10:02 Dose: 4 munits/min, 4 mls/hr Documented by: Ropivacaine (Naropin 0.2%) Confirm Administered Dose 200 mls @ as directed .ROUTE .STK-MED ONE Stop: 02/28/21 08:05 Lidocaine HCl (Lidocaine 1% 50 Ml Mdv) 50 ml INJECT ONETIME PRN PRN Reason: Laceration repair Misoprostol (Misoprostol 25 Mcg (1/4 Of 100 Mcg) Tab) 25 mcg VAG ONETIME PRN PRN Reason: Cervical Ripening Misoprostol (Misoprostol 25 Mcg (1/4 Of 100 Mcg) Tab) 25 mcg VAG Q4H PRN PRN Reason: Cervical Ripening Last Admin: 02/28/21 04:59 Dose: 25 mcg Documented by: Nalbuphine HCl (Nalbuphine 10 Mg/1 Ml Vial) 10 mg IVPUSH Q1H PRN PRN Reason: Pain (severe 7-10) Oxytocin (Oxytocin 10 Units/1 Ml Sdv) Confirm Administered Dose 10 unit .ROUTE .STK-MED ONE Stop: 02/28/21 13:13 Oxytocin (Oxytocin 10 Units/1 Ml Sdv) Confirm Administered Dose 10 unit .ROUTE .STK-MED ONE Stop: 02/28/21 13:13 Sterile Water (Water For Irrigation,Sterile 1,000 Ml Container) 1,000 ml IRR ASDIRECTED PRN PRN Reason: delivery Terbutaline Sulfate (Terbutaline 1 Mg/Ml Sdv) 0.25 mg SUBCUT ASDIRECTED PRN PRN Reason: Tacysystole Tranexamic Acid (Tranexamic Acid 1,000 Mg/10 Ml Amp) Confirm Administered Dose 1,000 mg .ROUTE .STK-MED ONE Stop: 02/28/21 13:12 - My Orders Last 24 Hours: My Active Orders 02/28/21 13:47 Acetaminophen [Tylenol Extra Strength] 1,000 mg PO Q4H PRN Acetaminophen [Tylenol Extra Strength] 500 mg PO Q4H PRN Benzocaine/Menthol [Dermoplast Pain Relief 20%-0.5% [place]] 78 gm TOP ASDIRECTED PRN Docusate Sodium [Colace] 100 mg PO Q12H PRN Ibuprofen [Motrin] 400 mg PO Q4H PRN Ibuprofen [Motrin] 800 mg PO Q6H PRN Lanolin [Lansinoh HPA] See Dose Instructions TOP ASDIRECTED PRN bisacodyL [Dulcolax] 10 mg RECTAL ONETIME PRN oxyCODONE 5 mg PO Q2H PRN witch Massiel [Tucks] 1 pad TOP ASDIRECTED PRN Breast Pump [WOMSER] Per Unit Routine 02/28/21 13:48 Patient Status [ADT] Routine May Shower [RC] ASDIRECTED Vital Signs [RC] PER UNIT ROUTINE Assess Lochia [WOMSER] Per Unit Routine Assess Uterine Involution [WOMSER] Per Unit Routine Peripheral IV Discontinue [OM.PC] Routine 02/28/21 13:49 Ice Therapy [OM.PC] Per Unit Routine Perineal Care [OM.PC] Per Unit Routine Sitz Bath [OM.PC] Per Unit Routine 02/28/21 13:53 Cooling Warming Measures [RC] ASDIRECTED 02/28/21 14:28 SCREEN [BBK] Stat RH IMMUNE GLOBULIN [BBK] Stat RHOGAM, [RHIG WORKUP, ] [BBK] Routine 02/28/21 Dinner Regular Diet [DIET] 02/28/21 18:00 CBC WITH AUTO DIFF [HEME] Routine
[2021-02-28] MEDS ORDERED: fentaNYL 100 MCG/2 ML SDV IVPUSH PRN (12:18)
[2021-02-28] MEDS ORDERED: Albuterol 0.083% 2.5 MG/3 ML Neb Soln NEB PRN (12:18)
[2021-02-28] MEDS ORDERED: Metoclopramide 10 MG/2 ML SDV IVPUSH PRN (12:18)
[2021-02-28] MEDS ORDERED: Naloxone 0.4 MG/ML Syringe IVPUSH PRN (12:18)
[2021-02-28] MEDS ORDERED: Oxytocin 10 Units/1 ML SDV ONE ×2 (13:12)
[2021-02-28] MEDS ORDERED: Lanolin 100% Cream 7 GM Tube TOP PRN (13:47)
[2021-02-28] MEDS ORDERED: Benzocaine/Menthol 20%-0.5% Spray 78 GM Cannister TOP PRN (13:47)
[2021-02-28] MEDS ORDERED: Bisacodyl 10 MG Supp RECTAL PRN (13:47)
[2021-02-28] MEDS ORDERED: Ibuprofen 400 MG Tab PO PRN (13:47)
[2021-02-28] MEDS ORDERED: Acetaminophen 500 MG Tab PO PRN ×2 (13:47)
[2021-02-28] MEDS ORDERED: Docusate Sodium 100 MG Cap PO PRN (13:47)
[2021-02-28] MEDS ORDERED: Witch Hazel Medicated Pads 40/Jar TOP PRN (13:47)
[2021-02-28] MEDS ORDERED: oxyCODONE 5 MG Tab PO PRN (13:47)
--- NOTE | 2021-02-28 13:49 | PCM.OPNOTE ---
<Davina Storey - Last Filed: 02/28/21 14:21> - General Post-Op/Procedure Note Date of Surgery/Procedure: 02/28/21 Operative Procedure(s): Dilation and curettage Findings: Retained placenta, successful removal of all retained product of conception verified by transabdominal ultrasound Pre Op Diagnosis: Retained placenta Post-Op Diagnosis: Same and hemorrhage Anesthesia Technique: Epidural Primary Surgeon: Juan Carlos Ann Anesthesia Provider: Michael Pedersen Bench Mover: Davina Storey Pathology: Placenta EBL in mLs: 2,500 Complications: None Condition: Stable Free Text/Narrative:: Pitocin, methergine, and TXA given for hemorrhage 2g IV Ancef given <Juan Carlos Ann - Last Filed: 02/28/21 17:29> - General Post-Op/Procedure Note Fluid Replacement, Intraop: 3,000 Complications: Uterine atony and hemorrhage, improved at the end of the procedure Free Text/Narrative:: Intake & Output 02/28/21 02/28/21 02/28/21 06:59 14:59 22:59 Intake Total 3800 Output Total 200 Balance 3600
--- NOTE | 2021-02-28 13:56 | PCM.POSTAN ---
POST ANESTHESIA ASSESSMENT - MENTAL STATUS Mental Status: Alert, Oriented - VITAL SIGNS Vital Signs: Last Vital Signs Temp 97.2 F 02/28/21 13:40 Pulse 90 02/28/21 13:51 Resp 13 02/28/21 13:51 BP 113/63 02/28/21 13:51 Pulse Ox 100 02/28/21 13:51 - RESPIRATORY Respiratory Status: Respiratory Rate WNL, Airway Patent, O2 Saturation Stable - CARDIOVASCULAR CV Status: Pulse Rate WNL, Blood Pressure Stable - GASTROINTESTINAL GI Status: No Symptoms - PAIN Pain Score: 0 - POST OP HYDRATION Hydration Status: Adequate & Stable
--- NOTE | 2021-02-28 14:08 | PCM48HPAN ---
Post Anesthesia Note - EVALUATION WITHIN 48HRS OF ANESTHETIC Vital Signs in Normal Range: Yes Patient Participated in Evaluation: Yes Respiratory Function Stable: Yes Airway Patent: Yes Cardiovascular Function Stable: Yes Hydration Status Stable: Yes Pain Control Satisfactory: Yes Nausea and Vomiting Control Satisfactory: Yes Mental Status Recovered: Yes Vital Signs: Last Vital Signs Temp 97.2 F 02/28/21 13:40 Pulse 96 02/28/21 14:07 Resp 17 02/28/21 14:07 BP 103/62 02/28/21 14:07 Pulse Ox 100 02/28/21 14:07
[2021-02-28 16:21] LABS: BLOOD UREA NITROGEN,BUN 6 mg/dL (7.0-18.0); CARBON DIOXIDE,CO2 22.1 mmol/L (21.0-32.0); CHLORIDE,CL 106 mmol/L (98-107); GLUCOSE RANDOM 97 mg/dL (74-106); SODIUM,NA 138 mmol/L (136-145)
[2021-02-28] MEDS ORDERED: Lactated Ringers 1,000 ML IV SCH (17:00)
[2021-02-28] MEDS: Ibuprofen 800 MG Tab PO PRN ×2 (17:26→23:52)
[2021-03-01 06:20] LABS: BLOOD UREA NITROGEN,BUN 5 mg/dL (7.0-18.0); CARBON DIOXIDE,CO2 25.9 mmol/L (21.0-32.0); CHLORIDE,CL 107 mmol/L (98-107); GLUCOSE RANDOM 83 mg/dL (74-106); POTASSIUM,K 4.1 mmol/L (3.5-5.1); SODIUM,NA 138 mmol/L (136-145)
[2021-03-01] MEDS: Ibuprofen 800 MG Tab PO PRN ×2 (06:20→14:30)
--- NOTE | 2021-03-01 07:39 | PCM.PNPP ---
<CordeliaDavina - Last Filed: 03/01/21 07:50> - General Info Date of Service: 03/01/21 Admission Dx/Problem (Free Text): PPD#1 with D&C POD#1 for retained placenta Subjective Update: Pt feeling well. Was feeling lightheaded following procedure yesterday but this has since improved. She has been ambulating but in small amounts without difficulty. Pain controlled. successfully. Functional Status: Reports: Pain Controlled - Review of Systems General: Reports: No Symptoms Pulmonary: Reports: No Symptoms Cardiovascular: Reports: No Symptoms Gastrointestinal: Reports: Flatus (No BMs) Genitourinary: Reports: No Symptoms Psychiatric: Reports: No Symptoms - General Info Date of Service: 03/01/21 - Patient Data Vital Signs - Most Recent: Last Vital Signs Temp 96.9 F 03/01/21 04:28 Pulse 86 03/01/21 04:28 Resp 18 03/01/21 04:28 BP 102/69 03/01/21 04:28 Pulse Ox 99 03/01/21 04:28 Weight - Most Recent: 86.636 kg I&O - Last 24 Hours: Intake & Output 02/28/21 03/01/21 03/01/21 22:59 06:59 14:59 Intake Total 3000 2 Balance 3000 2 Lab Results - Last 24 Hours: Laboratory Results - last 24 hr 02/28/21 02/28/21 02/28/21 Range/Units 04:25 13:30 14:28 WBC Cancelled RBC Cancelled Hgb Cancelled Hct Cancelled MCV Cancelled MCH Cancelled MCHC Cancelled RDW Std Deviation Cancelled RDW Coeff of Brennon Cancelled Plt Count Cancelled MPV Cancelled Neut % (Auto) (48.0-80.0) % Lymph % (Auto) (16.0-40.0) % [place] % (Auto) (0.0-15.0) % Eos % (Auto) (0.0-7.0) % Baso % (Auto) (0.0-1.5) % Neut # (Auto) (1.4-5.7) K/uL Lymph # (Auto) (0.6-2.4) K/uL [place] # (Auto) (0.0-0.8) K/uL Eos # (Auto) (0.0-0.7) K/uL Baso # (Auto) (0.0-0.1) K/uL Nucleated RBC % Cancelled Nucleated RBCs # Cancelled Sodium (136-145) mmol/L Potassium (3.5-5.1) mmol/L Chloride (98-107) mmol/L Carbon Dioxide (21.0-32.0) mmol/L BUN (7.0-18.0) mg/dL Creatinine (0.6-1.0) mg/dL Est Cr Clr Drug Dosing mL/min Estimated GFR (MDRD) ml/min Glucose (74-106) mg/dL Calcium (8.5-10.1) mg/dL Total Bilirubin (0.2-1.0) mg/dL AST (15-37) IU/L ALT (14-63) IU/L Alkaline Phosphatase (46-116) U/L Total Protein (6.4-8.2) g/dL Albumin (3.4-5.0) g/dL Globulin (2.6-4.0) g/dL Albumin/Globulin Ratio (0.9-1.6) Blood Type B NEGATIVE Antibody Screen POSITIVE Antibody Identification Anti-D Screen NEGATIVE (NEGATIVE) RhIG Candidate? YES Rhogam Indicated YES, BABY RH POS H Crossmatch See Detail See Detail 02/28/21 02/28/21 02/28/21 Range/Units 14:28 15:15 19:05 WBC 33.38 H 26.06 H RBC 3.65 L 3.07 L Hgb 11.3 L 9.6 L Hct 33.1 L 27.7 L MCV 90.7 90.2 MCH 31.0 31.3 MCHC 34.1 34.7 RDW Std Deviation 42.9 42.4 RDW Coeff of Brennon 13 13 Plt Count 176 155 MPV 11.20 10.80 Neut % (Auto) 90.3 H (48.0-80.0) % Lymph % (Auto) 4.3 L (16.0-40.0) % [place] % (Auto) 5.3 (0.0-15.0) % Eos % (Auto) 0.0 (0.0-7.0) % Baso % (Auto) 0.1 (0.0-1.5) % Neut # (Auto) 23.5 H (1.4-5.7) K/uL Lymph # (Auto) 1.1 (0.6-2.4) K/uL [place] # (Auto) 1.4 H (0.0-0.8) K/uL Eos # (Auto) 0.0 (0.0-0.7) K/uL Baso # (Auto) 0.0 (0.0-0.1) K/uL Nucleated RBC % 0.0 0.0 Nucleated RBCs # 0 0 Sodium 138 (136-145) mmol/L Potassium 4.0 (3.5-5.1) mmol/L Chloride 106 (98-107) mmol/L Carbon Dioxide 22.1 (21.0-32.0) mmol/L BUN 6 L (7.0-18.0) mg/dL Creatinine 0.5 L (0.6-1.0) mg/dL Est Cr Clr Drug Dosing 176.29 mL/min Estimated GFR (MDRD) > 60.0 ml/min Glucose 97 (74-106) mg/dL Calcium 7.9 L (8.5-10.1) mg/dL Total Bilirubin (0.2-1.0) mg/dL AST (15-37) IU/L ALT (14-63) IU/L Alkaline Phosphatase (46-116) U/L Total Protein (6.4-8.2) g/dL Albumin (3.4-5.0) g/dL Globulin (2.6-4.0) g/dL Albumin/Globulin Ratio (0.9-1.6) Blood Type Antibody Screen Antibody Identification Screen (NEGATIVE) RhIG Candidate? Rhogam Indicated Crossmatch 03/01/21 03/01/21 Range/Units 04:55 04:55 WBC 18.07 H RBC 2.59 L Hgb 8.1 L Hct 23.4 L MCV 90.3 MCH 31.3 MCHC 34.6 RDW Std Deviation 43.2 RDW Coeff of Brennon 13 Plt Count 157 MPV 11.20 Neut % (Auto) (48.0-80.0) % Lymph % (Auto) (16.0-40.0) % [place] % (Auto) (0.0-15.0) % Eos % (Auto) (0.0-7.0) % Baso % (Auto) (0.0-1.5) % Neut # (Auto) (1.4-5.7) K/uL Lymph # (Auto) (0.6-2.4) K/uL [place] # (Auto) (0.0-0.8) K/uL Eos # (Auto) (0.0-0.7) K/uL Baso # (Auto) (0.0-0.1) K/uL Nucleated RBC % 0.0 Nucleated RBCs # 0 Sodium 138 (136-145) mmol/L Potassium 4.1 (3.5-5.1) mmol/L Chloride 107 (98-107) mmol/L Carbon Dioxide 25.9 (21.0-32.0) mmol/L BUN 5 L (7.0-18.0) mg/dL Creatinine 0.5 L (0.6-1.0) mg/dL Est Cr Clr Drug Dosing 176.29 mL/min Estimated GFR (MDRD) > 60.0 ml/min Glucose 83 (74-106) mg/dL Calcium 7.5 L (8.5-10.1) mg/dL Total Bilirubin 0.2 (0.2-1.0) mg/dL AST 23 (15-37) IU/L ALT 16 (14-63) IU/L Alkaline Phosphatase 68 (46-116) U/L Total Protein 4.1 L (6.4-8.2) g/dL Albumin 1.7 L (3.4-5.0) g/dL Globulin 2.4 L (2.6-4.0) g/dL Albumin/Globulin Ratio 0.7 L (0.9-1.6) Blood Type Antibody Screen Antibody Identification Screen (NEGATIVE) RhIG Candidate? Rhogam Indicated Crossmatch Med Orders - Current: Current Medications Acetaminophen (Acetaminophen 500 Mg Tab) 500 mg PO Q4H PRN PRN Reason: Pain (mild 1-3) Last Admin: 02/28/21 21:35 Dose: 500 mg Documented by: Acetaminophen (Acetaminophen 500 Mg Tab) 1,000 mg PO Q4H PRN PRN Reason: Pain (mild 1-3) Albuterol (Albuterol 0.083% 2.5 Mg/3 Ml Neb Soln) 2.5 mg NEB ONETIME PRN PRN Reason: Wheezing Benzocaine/Menthol (Benzocaine/Menthol 20%-0.5% [place] 78 Gm Cannister) 78 gm TOP ASDIRECTED PRN PRN Reason: Perineal Comfort Measure Last Admin: 02/28/21 15:21 Dose: 1 can Documented by: Bisacodyl (Bisacodyl 10 Mg Supp) 10 mg RECTAL ONETIME PRN PRN Reason: Constipation Carboprost Tromethamine (Carboprost Tromethamine 250 Mcg/1 Ml Amp) 250 mcg IM ASDIRECTED PRN PRN Reason: Post Hemorrhage Docusate Sodium (Docusate Sodium 100 Mg Cap) 100 mg PO Q12H PRN PRN Reason: Constipation Droperidol (Droperidol 5 Mg/2 Ml Sdv) 0.625 mg IVPUSH ONETIME PRN PRN Reason: Nausea/Vomiting Emollient Ointment (Lanolin 100% Cream 7 Gm Tube) 0 gm TOP ASDIRECTED PRN PRN Reason: Sore Nipples Last Admin: 02/28/21 15:20 Dose: 1 tube Documented by: Oxytocin/Sodium Chloride (Oxytocin 30 Unit/500 Ml-Ns) 30 unit in 500 mls @ 999 mls/hr IV TITRATE JOSIAH Tranexamic Acid 1,000 mg/ (Sodium Chloride) 110 mls @ 660 mls/hr IV ONETIME PRN PRN Reason: Bleeding Lactated Ringer's (Ringers, Lactated) 1,000 mls @ 125 mls/hr IV ASDIRECTED JOSIAH Ibuprofen (Ibuprofen 400 Mg Tab) 400 mg PO Q4H PRN PRN Reason: Pain (mild 1-3) Ibuprofen (Ibuprofen 800 Mg Tab) 800 mg PO Q6H PRN PRN Reason: Pain (mild 1-3) Last Admin: 03/01/21 06:20 Dose: 800 mg Documented by: Methylergonovine Maleate (Methylergonovine 0.2 Mg/1 Ml Amp) 0.2 mg IM ASDIRECTED PRN PRN Reason: Post Hemorrhage Metoclopramide HCl (Metoclopramide 10 Mg/2 Ml Sdv) 10 mg IVPUSH ONETIME PRN PRN Reason: Nausea/Vomiting Misoprostol (Misoprostol 200 Mcg Tab) 200 mcg PO ONETIME PRN PRN Reason: Post Hemorrhage Naloxone HCl (Naloxone 0.4 Mg/Ml Syringe) 0.1 mg IVPUSH ASDIRECTED PRN PRN Reason: Respiratory Depression Ondansetron HCl (Ondansetron 4 Mg/2 Ml Sdv) 4 mg IVPUSH Q4H PRN PRN Reason: Nausea/Vomiting Last Admin: 02/28/21 09:08 Dose: 4 mg Documented by: Ondansetron HCl (Ondansetron 4 Mg/2 Ml Sdv) 4 mg IVPUSH ONETIME PRN PRN Reason: Nausea/Vomiting Oxycodone HCl (Oxycodone 5 Mg Tab) 5 mg PO Q2H PRN PRN Reason: Pain (severe 7-10) Sodium Chloride (Sodium Chloride 0.9% 10 Ml Syringe) 10 ml FLUSH ASDIRECTED PRN PRN Reason: Keep Vein Open Sodium Chloride (Sodium Chloride 0.9% 2.5 Ml Syringe) 2.5 ml FLUSH ASDIRECTED PRN PRN Reason: Keep Vein Open Sodium Chloride (Sodium Chloride 0.9% 10 Ml Sdv) 10 ml IV ASDIRECTED PRN PRN Reason: IV Use Witch Massiel (Witch Massiel Medicated Pads 40/Jar) 1 pad TOP ASDIRECTED PRN PRN Reason: comfort care Last Admin: 02/28/21 15:21 Dose: 1 tub Documented by: Discontinued Medications Butorphanol Tartrate (Butorphanol 1 Mg/Ml Sdv) 1 mg IVPUSH Q1H PRN PRN Reason: Pain (severe 7-10) Fentanyl (Fentanyl 100 Mcg/2 Ml Sdv) 50 mcg IVPUSH Q5M PRN PRN Reason: Pain (mild 1-3) Lactated Ringer's (Ringers, Lactated) 1,000 mls @ 150 mls/hr IV ASDIRECTED JOSIAH Last Admin: 02/28/21 17:28 Dose: 150 mls/hr Documented by: Oxytocin/Sodium Chloride (Oxytocin 30 Unit/500 Ml-Ns) 30 unit in 500 mls @ 2 mls/hr IV TITRATE JOSIAH; Protocol Last Titration: 02/28/21 10:02 Dose: 4 munits/min, 4 mls/hr Documented by: Ropivacaine (Naropin 0.2%) Confirm Administered Dose 200 mls @ as directed .ROUTE .[facility] ONE Stop: 02/28/21 08:05 Lidocaine HCl (Lidocaine 1% 50 Ml Mdv) 50 ml INJECT ONETIME PRN PRN Reason: Laceration repair Misoprostol (Misoprostol 25 Mcg (1/4 Of 100 Mcg) Tab) 25 mcg VAG ONETIME PRN PRN Reason: Cervical Ripening Misoprostol (Misoprostol 25 Mcg (1/4 Of 100 Mcg) Tab) 25 mcg VAG Q4H PRN PRN Reason: Cervical Ripening Last Admin: 02/28/21 04:59 Dose: 25 mcg Documented by: Nalbuphine HCl (Nalbuphine 10 Mg/1 Ml Vial) 10 mg IVPUSH Q1H PRN PRN Reason: Pain (severe 7-10) Oxytocin (Oxytocin 10 Units/1 Ml Sdv) Confirm Administered Dose 10 unit .ROUTE .STK-MED ONE Stop: 02/28/21 13:13 Oxytocin (Oxytocin 10 Units/1 Ml Sdv) Confirm Administered Dose 10 unit .ROUTE .STK-MED ONE Stop: 02/28/21 13:13 Sterile Water (Water For Irrigation,Sterile 1,000 Ml Container) 1,000 ml IRR ASDIRECTED PRN PRN Reason: delivery Terbutaline Sulfate (Terbutaline 1 Mg/Ml Sdv) 0.25 mg SUBCUT ASDIRECTED PRN PRN Reason: Tacysystole Tranexamic Acid (Tranexamic Acid 1,000 Mg/10 Ml Amp) Confirm Administered Dose 1,000 mg .ROUTE .STK-MED ONE Stop: 02/28/21 13:12 - Interaction Disposition, : in Room with Family Interaction: Holding Infant Feeding: Bottle Fed Infant, Continues to Breastfeed Support Person: - Recovery Exam Fundal Tone: Firm Fundal Level: 1 Fingerbreadths Below Umbilicus Fundal Placement: Midline Lochia Amount: Scant Lochia Color: Rubra/Red Perineum Description: Intact, Minimal Bruising/Swelling Episiotomy/Laceration: None Bladder Status: Voiding Urinary Elimination: Voided - Exam General: Alert, Oriented HEENT: Pupils Equal Neck: Supple Lungs: Clear to Auscultation, Normal Respiratory Effort Cardiovascular: Regular Rate, Regular Rhythm GI/Abdominal Exam: Normal Bowel Sounds (Appropriately tender) Extremities: Normal Inspection, No Pedal Edema Skin: Warm, Dry Psy/Mental Status: Alert, Normal Affect, Normal Mood - Problem List & Annotations (1) Retained placenta SNOMED Code(s): 367127979 Code(s): O73.0 - RETAINED PLACENTA WITHOUT HEMORRHAGE Status: Acute Current Visit: Yes Qualifiers: Retained placenta detail: portions of placenta Qualified Code(s): O73.1 - Retained portions of placenta and membranes, without hemorrhage (2) Vaginal delivery SNOMED Code(s): 453122164 Code(s): O80 - ENCOUNTER FOR FULL-TERM UNCOMPLICATED DELIVERY Status: Acute Current Visit: No (3) hemorrhage SNOMED Code(s): 96518052 Code(s): O72.1 - OTHER IMMEDIATE HEMORRHAGE Status: Acute Current Visit: Yes - Problem List Review Problem List Initiated/Reviewed/Updated: Yes - Assessment Assessment:: Pt is a 33 yo G2 now P2 female at 37w6d gestation s/p PPD#1. s/p dilation and curettage due to retained placenta following unsuccessful attempt at manual removal POD#1 Pt recovering well with minimal bleeding. Hgb 8.1 and Hct 23.4 at 0445. - Plan Plan:: Monitor Hgb levels with serial CBC q4h Give 1 unit blood if Hgb<7 PO iron supplement for Hgb 8.1 Rh negative, Antibody screen negative GBS negative, Rubella immune PO pain medications ordered PRN Regular diet as tolerated Encourage ambulation and fluid intake when able nursing assistance PRN Dispo: Stable, anticipate discharge 48 hours post delivery pending pt and baby condition <Iraida Zamorano - Last Filed: 03/01/21 09:18> - Patient Data Vital Signs - Most Recent: Last Vital Signs Temp 36.2 C 03/01/21 08:00 Pulse 88 03/01/21 08:00 Resp 18 03/01/21 08:00 BP 120/79 03/01/21 08:00 Pulse Ox 100 03/01/21 08:00 I&O - Last 24 Hours: Intake & Output 02/28/21 03/01/21 03/01/21 22:59 06:59 14:59 Intake Total 3000 2 Balance 3000 2 Lab Results - Last 24 Hours: Laboratory Results - last 24 hr 02/28/21 02/28/21 02/28/21 Range/Units 04:25 13:30 14:28 WBC Cancelled RBC Cancelled Hgb Cancelled Hct Cancelled MCV Cancelled MCH Cancelled MCHC Cancelled RDW Std Deviation Cancelled RDW Coeff of Brennon Cancelled Plt Count Cancelled MPV Cancelled Neut % (Auto) (48.0-80.0) % Lymph % (Auto) (16.0-40.0) % [place] % (Auto) (0.0-15.0) % Eos % (Auto) (0.0-7.0) % Baso % (Auto) (0.0-1.5) % Neut # (Auto) (1.4-5.7) K/uL Lymph # (Auto) (0.6-2.4) K/uL [place] # (Auto) (0.0-0.8) K/uL Eos # (Auto) (0.0-0.7) K/uL Baso # (Auto) (0.0-0.1) K/uL Nucleated RBC % Cancelled Nucleated RBCs # Cancelled Sodium (136-145) mmol/L Potassium (3.5-5.1) mmol/L Chloride (98-107) mmol/L Carbon Dioxide (21.0-32.0) mmol/L BUN (7.0-18.0) mg/dL Creatinine (0.6-1.0) mg/dL Est Cr Clr Drug Dosing mL/min Estimated GFR (MDRD) ml/min Glucose (74-106) mg/dL Calcium (8.5-10.1) mg/dL Total Bilirubin (0.2-1.0) mg/dL AST (15-37) IU/L ALT (14-63) IU/L Alkaline Phosphatase (46-116) U/L Total Protein (6.4-8.2) g/dL Albumin (3.4-5.0) g/dL Globulin (2.6-4.0) g/dL Albumin/Globulin Ratio (0.9-1.6) Blood Type B NEGATIVE Antibody Screen POSITIVE Antibody Identification Anti-D Screen NEGATIVE (NEGATIVE) RhIG Candidate? YES Rhogam Indicated YES, BABY RH POS H Crossmatch See Detail See Detail 02/28/21 02/28/21 02/28/21 Range/Units 14:28 15:15 19:05 WBC 33.38 H 26.06 H RBC 3.65 L 3.07 L Hgb 11.3 L 9.6 L Hct 33.1 L 27.7 L MCV 90.7 90.2 MCH 31.0 31.3 MCHC 34.1 34.7 RDW Std Deviation 42.9 42.4 RDW Coeff of Brennon 13 13 Plt Count 176 155 MPV 11.20 10.80 Neut % (Auto) 90.3 H (48.0-80.0) % Lymph % (Auto) 4.3 L (16.0-40.0) % [place] % (Auto) 5.3 (0.0-15.0) % Eos % (Auto) 0.0 (0.0-7.0) % Baso % (Auto) 0.1 (0.0-1.5) % Neut # (Auto) 23.5 H (1.4-5.7) K/uL Lymph # (Auto) 1.1 (0.6-2.4) K/uL [place] # (Auto) 1.4 H (0.0-0.8) K/uL Eos # (Auto) 0.0 (0.0-0.7) K/uL Baso # (Auto) 0.0 (0.0-0.1) K/uL Nucleated RBC % 0.0 0.0 Nucleated RBCs # 0 0 Sodium 138 (136-145) mmol/L Potassium 4.0 (3.5-5.1) mmol/L Chloride 106 (98-107) mmol/L Carbon Dioxide 22.1 (21.0-32.0) mmol/L BUN 6 L (7.0-18.0) mg/dL Creatinine 0.5 L (0.6-1.0) mg/dL Est Cr Clr Drug Dosing 176.29 mL/min Estimated GFR (MDRD) > 60.0 ml/min Glucose 97 (74-106) mg/dL Calcium 7.9 L (8.5-10.1) mg/dL Total Bilirubin (0.2-1.0) mg/dL AST (15-37) IU/L ALT (14-63) IU/L Alkaline Phosphatase (46-116) U/L Total Protein (6.4-8.2) g/dL Albumin (3.4-5.0) g/dL Globulin (2.6-4.0) g/dL Albumin/Globulin Ratio (0.9-1.6) Blood Type Antibody Screen Antibody Identification Screen (NEGATIVE) RhIG Candidate? Rhogam Indicated Crossmatch 03/01/21 03/01/21 Range/Units 04:55 04:55 WBC 18.07 H RBC 2.59 L Hgb 8.1 L Hct 23.4 L MCV 90.3 MCH 31.3 MCHC 34.6 RDW Std Deviation 43.2 RDW Coeff of Brennon 13 Plt Count 157 MPV 11.20 Neut % (Auto) (48.0-80.0) % Lymph % (Auto) (16.0-40.0) % [place] % (Auto) (0.0-15.0) % Eos % (Auto) (0.0-7.0) % Baso % (Auto) (0.0-1.5) % Neut # (Auto) (1.4-5.7) K/uL Lymph # (Auto) (0.6-2.4) K/uL [place] # (Auto) (0.0-0.8) K/uL Eos # (Auto) (0.0-0.7) K/uL Baso # (Auto) (0.0-0.1) K/uL Nucleated RBC % 0.0 Nucleated RBCs # 0 Sodium 138 (136-145) mmol/L Potassium 4.1 (3.5-5.1) mmol/L Chloride 107 (98-107) mmol/L Carbon Dioxide 25.9 (21.0-32.0) mmol/L BUN 5 L (7.0-18.0) mg/dL Creatinine 0.5 L (0.6-1.0) mg/dL Est Cr Clr Drug Dosing 176.29 mL/min Estimated GFR (MDRD) > 60.0 ml/min Glucose 83 (74-106) mg/dL Calcium 7.5 L (8.5-10.1) mg/dL Total Bilirubin 0.2 (0.2-1.0) mg/dL AST 23 (15-37) IU/L ALT 16 (14-63) IU/L Alkaline Phosphatase 68 (46-116) U/L Total Protein 4.1 L (6.4-8.2) g/dL Albumin 1.7 L (3.4-5.0) g/dL Globulin 2.4 L (2.6-4.0) g/dL Albumin/Globulin Ratio 0.7 L (0.9-1.6) Blood Type Antibody Screen Antibody Identification Screen (NEGATIVE) RhIG Candidate? Rhogam Indicated Crossmatch Med Orders - Current: Current Medications Acetaminophen (Acetaminophen 500 Mg Tab) 500 mg PO Q4H PRN PRN Reason: Pain (mild 1-3) Last Admin: 02/28/21 21:35 Dose: 500 mg Documented by: Acetaminophen (Acetaminophen 500 Mg Tab) 1,000 mg PO Q4H PRN PRN Reason: Pain (mild 1-3) Albuterol (Albuterol 0.083% 2.5 Mg/3 Ml Neb Soln) 2.5 mg NEB ONETIME PRN PRN Reason: Wheezing Benzocaine/Menthol (Benzocaine/Menthol 20%-0.5% [place] 78 Gm Cannister) 78 gm TOP ASDIRECTED PRN PRN Reason: Perineal Comfort Measure Last Admin: 02/28/21 15:21 Dose: 1 can Documented by: Bisacodyl (Bisacodyl 10 Mg Supp) 10 mg RECTAL ONETIME PRN PRN Reason: Constipation Carboprost Tromethamine (Carboprost Tromethamine 250 Mcg/1 Ml Amp) 250 mcg IM ASDIRECTED PRN PRN Reason: Post Hemorrhage Docusate Sodium (Docusate Sodium 100 Mg Cap) 100 mg PO Q12H PRN PRN Reason: Constipation Droperidol (Droperidol 5 Mg/2 Ml Sdv) 0.625 mg IVPUSH ONETIME PRN PRN Reason: Nausea/Vomiting Emollient Ointment (Lanolin 100% Cream 7 Gm Tube) 0 gm TOP ASDIRECTED PRN PRN Reason: Sore Nipples Last Admin: 02/28/21 15:20 Dose: 1 tube Documented by: Oxytocin/Sodium Chloride (Oxytocin 30 Unit/500 Ml-Ns) 30 unit in 500 mls @ 999 mls/hr IV TITRATE JOSIAH Tranexamic Acid 1,000 mg/ (Sodium Chloride) 110 mls @ 660 mls/hr IV ONETIME PRN PRN Reason: Bleeding Lactated Ringer's (Ringers, Lactated) 1,000 mls @ 125 mls/hr IV ASDIRECTED JOSIAH Ibuprofen (Ibuprofen 400 Mg Tab) 400 mg PO Q4H PRN PRN Reason: Pain (mild 1-3) Ibuprofen (Ibuprofen 800 Mg Tab) 800 mg PO Q6H PRN PRN Reason: Pain (mild 1-3) Last Admin: 03/01/21 06:20 Dose: 800 mg Documented by: Methylergonovine Maleate (Methylergonovine 0.2 Mg/1 Ml Amp) 0.2 mg IM ASDIRECTED PRN PRN Reason: Post Hemorrhage Metoclopramide HCl (Metoclopramide 10 Mg/2 Ml Sdv) 10 mg IVPUSH ONETIME PRN PRN Reason: Nausea/Vomiting Misoprostol (Misoprostol 200 Mcg Tab) 200 mcg PO ONETIME PRN PRN Reason: Post Hemorrhage Naloxone HCl (Naloxone 0.4 Mg/Ml Syringe) 0.1 mg IVPUSH ASDIRECTED PRN PRN Reason: Respiratory Depression Ondansetron HCl (Ondansetron 4 Mg/2 Ml Sdv) 4 mg IVPUSH Q4H PRN PRN Reason: Nausea/Vomiting Last Admin: 02/28/21 09:08 Dose: 4 mg Documented by: Ondansetron HCl (Ondansetron 4 Mg/2 Ml Sdv) 4 mg IVPUSH ONETIME PRN PRN Reason: Nausea/Vomiting Oxycodone HCl (Oxycodone 5 Mg Tab) 5 mg PO Q2H PRN PRN Reason: Pain (severe 7-10) Sodium Chloride (Sodium Chloride 0.9% 10 Ml Syringe) 10 ml FLUSH ASDIRECTED PRN PRN Reason: Keep Vein Open Sodium Chloride (Sodium Chloride 0.9% 2.5 Ml Syringe) 2.5 ml FLUSH ASDIRECTED PRN PRN Reason: Keep Vein Open Sodium Chloride (Sodium Chloride 0.9% 10 Ml Sdv) 10 ml IV ASDIRECTED PRN PRN Reason: IV Use Witch Massiel (Witch Massiel Medicated Pads 40/Jar) 1 pad TOP ASDIRECTED PRN PRN Reason: comfort care Last Admin: 02/28/21 15:21 Dose: 1 tub Documented by: Discontinued Medications Butorphanol Tartrate (Butorphanol 1 Mg/Ml Sdv) 1 mg IVPUSH Q1H PRN PRN Reason: Pain (severe 7-10) Fentanyl (Fentanyl 100 Mcg/2 Ml Sdv) 50 mcg IVPUSH Q5M PRN PRN Reason: Pain (mild 1-3) Lactated Ringer's (Ringers, Lactated) 1,000 mls @ 150 mls/hr IV ASDIRECTED JOSIAH Last Admin: 02/28/21 17:28 Dose: 150 mls/hr Documented by: Oxytocin/Sodium Chloride (Oxytocin 30 Unit/500 Ml-Ns) 30 unit in 500 mls @ 2 mls/hr IV TITRATE JOSIAH; Protocol Last Titration: 02/28/21 10:02 Dose: 4 munits/min, 4 mls/hr Documented by: Ropivacaine (Naropin 0.2%) Confirm Administered Dose 200 mls @ as directed .ROUTE .STK-MED ONE Stop: 02/28/21 08:05 Last Admin: 03/01/21 08:51 Dose: Not Given Documented by: Lidocaine HCl (Lidocaine 1% 50 Ml Mdv) 50 ml INJECT ONETIME PRN PRN Reason: Laceration repair Misoprostol (Misoprostol 25 Mcg (1/4 Of 100 Mcg) Tab) 25 mcg VAG ONETIME PRN PRN Reason: Cervical Ripening Misoprostol (Misoprostol 25 Mcg (1/4 Of 100 Mcg) Tab) 25 mcg VAG Q4H PRN PRN Reason: Cervical Ripening Last Admin: 02/28/21 04:59 Dose: 25 mcg Documented by: Nalbuphine HCl (Nalbuphine 10 Mg/1 Ml Vial) 10 mg IVPUSH Q1H PRN PRN Reason: Pain (severe 7-10) Oxytocin (Oxytocin 10 Units/1 Ml Sdv) Confirm Administered Dose 10 unit .ROUTE .STK-MED ONE Stop: 02/28/21 13:13 Oxytocin (Oxytocin 10 Units/1 Ml Sdv) Confirm Administered Dose 10 unit .ROUTE .STK-MED ONE Stop: 02/28/21 13:13 Sterile Water (Water For Irrigation,Sterile 1,000 Ml Container) 1,000 ml IRR ASDIRECTED PRN PRN Reason: delivery Terbutaline Sulfate (Terbutaline 1 Mg/Ml Sdv) 0.25 mg SUBCUT ASDIRECTED PRN PRN Reason: Tacysystole Tranexamic Acid (Tranexamic Acid 1,000 Mg/10 Ml Amp) Confirm Administered Dose 1,000 mg .ROUTE .STK-MED ONE Stop: 02/28/21 13:12 - Problem List Review Problem List Initiated/Reviewed/Updated: Yes - Assessment Assessment:: Patient seen and examined by me. Discussed recommendation of 24 hour IV antibiotics, however the patient states that she feels well, not dizzy and would really like to go home today. She also is concerned about thrush for her baby on antibiotics. She received a single dose of prophylactic antibiotics at the time of D&C, I explained that there is some thought to continue antibiotics for 24 hours after invasive uterine procedure following delivery. After discussion she agrees to 24 hours of oral antibiotics. She denies symptomatic anemia, would be willing to take IV iron prior to discharge. After discussion of risks and benefits of these decisions, will start 24 hour course of Augmentin and give IV iron prior to discharge. She may be discharged this afternoon if stable, will recheck H&H prior to discharge
[2021-03-01] MEDS ORDERED: Iron Sucrose Complex 100 MG/5 ML SDV IVPUSH ONE (09:19)
[2021-03-01] MEDS: Amoxicillin/Clavulanate K 875-125 MG Tab PO SCH ×2 (09:49→21:32)
--- NOTE | 2021-03-02 01:43 | OR ---
SURGEON: Juan Carlos Ann MD DATE OF PROCEDURE: 02/28/2021 INDICATION FOR PROCEDURE: A 30-year-old G2, P1-0-0-1, who presented with premature rupture of membranes. The patient presented with gush of clear fluid around midnight last night. Rupture was confirmed with positive AmniSure. She was 1 cm dilated. GBS was negative. She is B negative blood type and received RhoGAM at 28 weeks. Her prior was complicated by persistent bleeding , which she was found to have some retained products of conception that was moved within an ultrasound-guided D and C after about 6 weeks . was otherwise uncomplicated. She received 1 dose of Cytotec for induction of labor. She progressed to 3 cm dilated and having regular and strong contractions. She received an epidural with good pain control. The baby was category 1 tracing. She then quickly progressed to fully dilated with the urge to push. PREOPERATIVE DIAGNOSES: 1. [place] intrauterine at 37 weeks and 6 days. 2. Premature rupture of membranes. 3. Active labor. POSTOPERATIVE DIAGNOSES: 1. [place] intrauterine at 37 weeks and 6 days. 2. Premature rupture of membranes. 3. Active labor. 4. Retained placenta. 5. hemorrhage PROCEDURES PERFORMED: Normal spontaneous vaginal delivery. Manual removal of placenta. Dilation and curettage. [employer]IT [employer] C[employer]TER HAND: Davina Storey, MS-4. ANESTHESIOLOGIST: Dr. Miller ANESTHESIA: Epidural. FINDINGS: Viable female infant. score 8 and 9. weight of 3.11kg. Nuchal cord x1. The placenta did not deliver after 30 minutes. Attempted to manually remove the placenta, but a large portion of it was adhered to the uterine fundus. This was removed in the OR with suction curettage. hemorrhage with uterine atony. ESTIMATED BLOOD LOSS: 2.5 L. DESCRIPTION OF PROCEDURE: The patient pushed with contractions for about 5 minutes with good descent. head delivered in occiput anterior position over intact perineum. Anterior shoulder was delivered easily. The nuchal cord x1 was noted and reduced after delivery. Posterior shoulder and body were delivered without difficulty. The baby was placed on maternal chest and evaluated by awaiting nursing staff. She was pink, crying and moving all extremities immediately after delivery. The umbilical cord was clamped and cut after about 3 minutes and no longer pulsating. The umbilical cord gases were obtained. The vagina and perineum were examined and she did not have any lacerations. The bleeding was light and the fundus was firm after starting Pitocin. After about 30 minutes, the placenta did not separate. Manual removal performed, but there was a portion that was adhered to the fundus of the uterus. The fundus of the uterus had also contracted down to making it difficult to remove. Therefore, a decision was made to proceed with dilation and curettage in the OR. The procedure was explained to the patient including the risks of bleeding, infection, DVTs, and injury to surrounding organs. She was agreeable to proceed. Questions answered and consent was signed. Anesthesia and OR team were informed to proceed urgently due to continued bleeding. She was brought to the OR and placed in dorsal lithotomy position. She was properly prepped and draped with Betadine. Her epidural was topped off by Anesthesia team and she had good pain control. She was given 2 g Ancef IV for infection prophylaxis. She had a moderate amount of bleeding with clots at this time. All blood clots were removed from the uterus. Attempted to separate the remaining placenta from the fundus of the uterus. Portions of it were removed. A careful curettage was then performed with curette and a curettage was also performed with the suction. A bimanual exam was again performed and was able to separate the placenta from the myometrium. A curettage was then performed with the suction curette and no further products of conception were noted. She continued to have heavy bleeding during the procedure. She became hypotensive at this point in the case and was given fluid boluses with improvement. A bimanual exam was performed to help with the uterine atony. She was also given an additional dose of Pitocin, Methergine and TXA. The uterine tone then improved and the bleeding became light. Ultrasound was performed during the case and the endometrium appears to be cleared of any remaining products of conception and no blood flow was noted. All products were sent to pathology. The patient tolerated the procedure well. She was taken to the recovery room in stable condition. Plan to continue to trend CBCs and monitor vital signs closely. KIMBERLY KASPER /[id number] [place]
== END 2021-03-01 21:40 | disposition home or self-care (01) | DRG 541 ==
LOC: MW.OBCHECK 02:59 → MW.OB 03:01 → MW.OBCHECK 11:09 → MW.OB 11:09
PROVIDERS: ADMIT Obstetrics & Gynecology; ATTEND Obstetrics & Gynecology
PROC: 10E0XZZ Delivery of Products of Conception, External Approach (ICD-10-PCS; principal; 2021-02-28)
PROC: 10D17ZZ Extraction of Products of Conception, Retained, Via Natural or Artificial Opening (ICD-10-PCS; 2021-02-28)
PROC: 3E0P7VZ Introduction of Hormone into Female Reproductive, Via Natural or Artificial Opening (ICD-10-PCS; 2021-02-28)
PROC: 3E0R3BZ Introduction of Anesthetic Agent into Spinal Canal, Percutaneous Approach (ICD-10-PCS; 2021-02-28)
PROC: 3E0234Z Introduction of Serum, Toxoid and Vaccine into Muscle, Percutaneous Approach (ICD-10-PCS; 2021-03-01)
DX: O42.02 Full-term premature rupture of membranes, onset of labor within 24 hours of rupture (principal); O69.81X0 Labor and delivery complicated by cord around neck, without compression, not applicable or unspecified; Z37.0 Single live birth; O72.1 Other immediate postpartum hemorrhage; O73.1 Retained portions of placenta and membranes, without hemorrhage; Z20.822 Contact with and (suspected) exposure to COVID-19; O26.893 Other specified pregnancy related conditions, third trimester; Z3A.37 37 weeks gestation of pregnancy; Z67.21 Type B blood, Rh negative
CPT/HCPCS: 00940; 01967; 36415; 59025; 59409; 80048; 80053; 81003; 84112; 85014; 85018; 85025; 85027; 85460; 86592; 86850; 86870; 86900; 86901; 86920; 86921; 86922; A9270-GY; J1756; J2405; J2590; J2790; J2795; J7120; U0002